=== PATIENT | female | born 1935 | race Caucasian/White ===

== ENCOUNTER 2020-08-04 11:20 | Inpatient (IN) ==
[2020-08-04] MEDS ORDERED: IOPAMIDOL 100 ML BOTTLE IV ONE (11:21)
[2020-08-04] MEDS ORDERED: cefTRIAXone 1 GM VIAL IV ONE (11:32)
[2020-08-04] MEDS ORDERED: methylPREDNISolone SOD SUCC 125 MG/2 ML VIAL IV ONE (11:32)
--- NOTE | 2020-08-04 11:39 | Emergency Department Note ---
Altered Mental Status HPI General Chief Complaint: Altered Mental Status Stated Complaint: shortness of breath, altered LOC Time Seen by Provider: 08/04/20 11:29 Mode of arrival: EMS Limitations: altered mental status History of Present Illness HPI Narrative: Narrative: Presents to room T1 via EMS for evaluation of altered levels of consciousness and respiratory distress. The patient has a history of COPD and CHF. She has had rapidly declining respiratory status per EMS since yesterday. Treatment prior to arrival included CPAP. On initial presentation the patient does not answer my questions and cannot provide additional history. I did obtain further history from the daughter who is arrived at the bedside. She states that the patient normally takes Lasix but has been noncompliant over the last month due to pain. She states that she did have recent surgery which has decreased her mobility. The daughter states 2 days ago the patient actually did have an [facility] and her mental s tatus was at baseline. She states over the last 2 days she has had rapid decline in her cognition and starting last night and into the morning her respiratory status is declined as well. There is no known Covid exposure. The patient has refused prior appointments for immunization at this time. Related Data Home Medications Medication Instructions Recorded Confirmed aspirin [Adult Low Dose Aspirin] 81 mg PO DAILY 06/27/20 08/02/20 folic acid 1 mg PO DAILY 06/27/20 08/02/20 furosemide 40 mg PO BID 06/27/20 08/02/20 metoprolol tartrate 25 mg PO BID 06/27/20 08/02/20 potassium chloride 10 meq PO BID 06/27/20 08/02/20 magnesium 250 mg tablet 250 mg PO QDAY 07/13/20 08/02/20 cholecalciferol (vitamin D3) 50 50 mcg PO QDAY 07/14/20 08/02/20 mcg (2,000 unit) capsule Previous Rx's Medication Instructions Recorded methocarbamol [Robaxin-750] 750 mg PO Q8H PRN #20 tab 06/27/20 tramadol 50 mg PO Q4HP PRN #20 tab 06/27/20 lorazepam 1 mg tablet 1 mg PO ONCE #2 tab 07/21/20 hydrocodone 7.5 mg-acetaminophen 1 tab PO Q6H PRN #56 tab MDD 4 07/23/20 325 mg tablet Allergies Allergy/AdvReac Type Severity Reaction Status Date / Time codeine [CODEINE] Allergy Unknown SHAKEY Verified 08/02/20 15:11 levofloxacin AdvReac Vomiting Verified 08/02/20 15:11 Review of Systems ROS ROS Narrative: Narrative: Limitations: ROS unobtainable due to patients medical condition [facility] Narrative Patient History Narrative: Narrative: Medical/Surgical/Family History All Active Problems (Updated 08/04/20 @ 15:46 by Yonas Funk MD) Acute delirium (Acute) Respiratory failure (Acute) Acute exacerbation of CHF (congestive heart failure) (Acute) Chronic obstructive pulmonary disease with (acute) exacerbation (Acute) Pneumonia (Acute) Idiopathic osteoporosis with pathological fracture (Acute) Age-related osteoporosis with current pathol fracture of vertebra (Acute) History of shoulder surgery (Chronic) History of appendectomy (Chronic) History of carpal tunnel surgery (Chronic) History of D&C (Chronic) History of tonsillectomy and adenoidectomy (Chronic) Vitamin B12 deficiency anemia (Chronic) Vitamin D deficiency (Chronic) Urinary frequency (Chronic) Pain in joint (Chronic) Knee pain, right (Chronic) Bile salt-induced diarrhea (Chronic) Lichen sclerosus (Chronic) SVT (supraventricular tachycardia) (Chronic) COPD (chronic obstructive pulmonary disease) (Chronic) Hyperlipidemia (Chronic) Edema (Chronic) CKD (chronic kidney disease), stage III (Chronic) Hypertension (Chronic) Peripheral neuropathy (Chronic) Diabetes mellitus (Chronic) Low back pain (Chronic) Medical History Bile salt-induced diarrhea CKD (chronic kidney disease), stage III COPD (chronic obstructive pulmonary disease) Diabetes mellitus Edema Hyperlipidemia Hypertension Knee pain, right Lichen sclerosus Low back pain Pain in joint Peripheral neuropathy SVT (supraventricular tachycardia) Urinary frequency Vitamin B12 deficiency anemia Vitamin D deficiency Surgical History History of appendectomy History of carpal tunnel surgery History of D&C History of shoulder surgery History of tonsillectomy and adenoidectomy Family History Other No pertinent family history Social History Smoking Status: Former smoker Alcohol Intake Frequency: does not drink Substance Use: does not use Exam Narrative Narrative: Narrative: General Limitations: altered mental status General appearance: Present in distress Head Head: Present atraumatic, normocephalic and normal inspection Eye Eye: Present normal appearance; Absent conjunctival injection ENT ENT: Present mucous membranes moist Neck Neck: Present normal inspection, trachea midline and other (No JVD) Chest Chest: Present normal inspection and symmetric chest wall rise Respiratory Respiratory: Present normal lung sounds bilaterally, respiratory distress, prolonged expiratory phase and decreased breath sounds Cardiovascular Cardiovascular: Present regular rate, normal rhythm and normal heart sounds Adbominal Abdominal: Present soft; Absent distention Extremities Extremities: Present pedal edema Neurological Neurological: Present motor sensory deficit and other (Limited neurologic exam secondary to the patient's altered level of consciousness. There is no obvious focal neurologic deficits identified) Skin Skin: Present warm (WNL) and dry; Absent rash Course Vital Signs Vital signs: Vital Signs Pulse Rate 70 08/04/20 11:31 Respiratory Rate 20 08/04/20 11:31 Blood Pressure 184/61 08/04/20 11:31 Pulse Oximetry (%) 96 08/04/20 11:31 Pulse Rate 60 08/04/20 13:46 Respiratory Rate 18 08/04/20 14:04 Blood Pressure 155/62 08/04/20 13:46 Pulse Oximetry (%) 100 08/04/20 14:04 Procedures Intubation Time out performed: Yes sedative: Etomidate Mg Given: 40 paralytic: Rocuronium Mg Given: 70 Laryngoscope: Fabiola ET Tube Size: 7.5 ET Tube Uncuffed: Yes Tube Secured Depth (cm): 23 Tube Secured Location: lips Tube Placement Confirmation: visualized tube passing through cords, equal breath sounds bilaterally, no breath sounds over epigastrium and confirmation by c apnometry Patient Tolerated Procedure: well and no complications Intubation Complications: none Other Procedure: The patient required improved vascular access to any a CVP line was placed by myself. The supraclavicular approach to subclavian vein was used. 1 attempt with Seldinger technique. 7.5 Georgian 4 port tube placed without difficulty. Secured in place. Postprocedural chest x-ray confirms placement. MDM MDM Narrative Medical decision making narrative: Narrative: Medical Records Medical records reviewed: Yes I reviewed the patient's medical records. Lab Data Lab results reviewed: Yes I reviewed the patient's lab results. Result diagrams: 08/04/20 11:58 08/04/20 11:58 Labs: Lab Results 0308/04/20 08/04/20 Range/Units 11:58 11:58 11:58 WBC 14.6 H (4.5-11.0) K/mcL RBC 4.38 (4.00-5.20) M/mcL Hgb 11.7 L (12.0-15.0) g/dL Hct 42.5 (36.0-48.0) % MCV 97.0 (80.0-100.0) fL MCH 26.7 (26.0-34.0) pg MCHC 27.5 L (31.0-36.0) g/dL RDW 13.5 (11.5-14.5) % Plt Count 256 (140-440) K/mcL MPV 9.3 (7.4-10.4) fL Neut % (Auto) 82.0 H (38.0-78.0) % Lymph % (Auto) 7.1 L (15.0-49.0) % Bay % (Auto) 10.0 (1.0-12.0) % Eos % (Auto) 0.1 (0.0-7.0) % Baso % (Auto) 0.8 (0.0-2.0) % Lymph # (Auto) 1.03 L (1.50-4.80) K/mcL [place] # (Auto) 1.46 H (0.10-0.90) K/mcL Eos # (Auto) 0.02 (0.00-0.70) K/mcL Baso # (Auto) 0.11 (0.00-0.20) K/mcL Absolute Neutrophils 11.96 H (1.80-8.00) K/mcL POC PT 12.5 (11.9-14.5) sec POC INR 1.0 (0.8-1.2) VBG Lactic Acid (0.5-2.0) mmol/L Sodium 137 (133-145) mmol/L Potassium 5.2 H (3.3-5.1) mmol/L Chloride 92 L (96-108) mmol/L Carbon Dioxide 37 H (22-30) mmol/L Anion Gap 8.0 (8.0-16.0) BUN 18 (8-23) mg/dL Creatinine 0.8 (0.6-1.1) mg/dL GFR Calculation 66 Glucose 182 H (70-105) mg/dL Calcium 9.1 (8.6-10.4) mg/dL Total Bilirubin 0.2 (0.1-1.0) mg/dL AST 21 (<32) U/L ALT 13 (<40) U/L Alkaline Phosphatase 117 (39-117) U/L Troponin T (<0.03) ng/mL NT-Pro-B Natriuret Pep 3131.0 H (<450.0) pg/mL Total Protein 7.3 (5.9-8.4) gm/dL Albumin 3.6 (3.2-5.2) gm/dL Globulin 3.7 (2.2-3.7) gm/dL Albumin/Globulin Ratio 1.0 (1.0-2.3) Urine Color Urine Appearance (Clear) Urine pH (5.0-9.0) Ur Specific Omega (1.000-1.035) Urine Protein (Negative) mg/dL Urine Glucose (UA) (Negative) mg/dL Urine Ketones (Negative) mg/dL Urine Occult Blood (Negative) mg/dL Urine Nitrate (Negative) Urine Bilirubin (Negative) mg/dL Urine Urobilinogen mg/dL Ur Leukocyte Esterase (Negative) /ug Urine RBC (0-3) /hpf Urine WBC (0-4) /hpf Ur Squamous Epith Cells (0-4) /hpf Urine Bacteria (0) /hpf Hyaline Casts (0-2) /lph Urine Mucus (None) /hpf Ur Culture Indicated? 08/04/20 08/04/20 08/04/20 Range/Units 11:58 11:58 14:10 WBC (4.5-11.0) K/mcL RBC (4.00-5.20) M/mcL Hgb (12.0-15.0) g/dL Hct (36.0-48.0) % MCV (80.0-100.0) fL MCH (26.0-34.0) pg MCHC (31.0-36.0) g/dL RDW (11.5-14.5) % Plt Count (140-440) K/mcL MPV (7.4-10.4) fL Neut % (Auto) (38.0-78.0) % Lymph % (Auto) (15.0-49.0) % Bay % (Auto) (1.0-12.0) % Eos % (Auto) (0.0-7.0) % Baso % (Auto) (0.0-2.0) % Lymph # (Auto) (1.50-4.80) K/mcL Bay # (Auto) (0.10-0.90) K/mcL Eos # (Auto) (0.00-0.70) K/mcL Baso # (Auto) (0.00-0.20) K/mcL Absolute Neutrophils (1.80-8.00) K/mcL POC PT (11.9-14.5) sec POC INR (0.8-1.2) VBG Lactic Acid 0.6 (0.5-2.0) mmol/L Sodium (133-145) mmol/L Potassium (3.3-5.1) mmol/L Chloride (96-108) mmol/L Carbon Dioxide (22-30) mmol/L Anion Gap (8.0-16.0) BUN (8-23) mg/dL Creatinine (0.6-1.1) mg/dL GFR Calculation Glucose (70-105) mg/dL Calcium (8.6-10.4) mg/dL Total Bilirubin (0.1-1.0) mg/dL AST (<32) U/L ALT (<40) U/L Alkaline Phosphatase (39-117) U/L Troponin T 0.05 H* (<0.03) ng/mL NT-Pro-B Natriuret Pep (<450.0) pg/mL Total Protein (5.9-8.4) gm/dL Albumin (3.2-5.2) gm/dL Globulin (2.2-3.7) gm/dL Albumin/Globulin Ratio (1.0-2.3) Urine Color Donna Urine Appearance Cloudy A (Clear) Urine pH 5.0 (5.0-9.0) Ur Specific Omega 1.021 (1.000-1.035) Urine Protein 100 A (Negative) mg/dL Urine Glucose (UA) Negative (Negative) mg/dL Urine Ketones Negative (Negative) mg/dL Urine Occult Blood Negative (Negative) mg/dL Urine Nitrate Negative (Negative) Urine Bilirubin Negative (Negative) mg/dL Urine Urobilinogen Negative mg/dL Ur Leukocyte Esterase Negative (Negative) /ug Urine RBC 6 H (0-3) /hpf Urine WBC 12 H (0-4) /hpf Ur Squamous Epith Cells 4 (0-4) /hpf Urine Bacteria Few A (0) /hpf Hyaline Casts 60 H (0-2) /lph Urine Mucus Few A (None) /hpf Ur Culture Indicated? yes ED POC Tests ED POC Tests: DENICE - Influenza A Negative DENICE - Influenza B Negative DENICE - SARS Antigen Negative Radiology Data Radiology results reviewed: Yes I reviewed the patient's radiology results. EKG Data EKG #1: EKG attestation: Yes I reviewed and interpreted this EKG. and Yes There are no EKG findings of acute coronary syndrome EKG results narrative: Normal sinus rhythm, rate 67, normal ST segments, normal QRS, no ectopy Rhythm Strip Data Rhythm Strip Rate: 70 Interpretation: Normal sinus rhythm Pulse Oximetry Data Pulse Ox %: 96 Interpretation: On CPAP, oxygenation well compensated CC TIME Critical Care Time Critical Care Time: Yes Total Critical Care Time: 30 Attestation: Approximately [#] minutes of critical care time was used in order to assess and manage the high probability of imminent or life threatening deterioration to cardiovascular status which required my highest level of preparedness and interventions with frequent patient assessments. This time is excluding time spent on separately billable procedures. On arrival the patient was in severe respiratory distress with altered mental status and poor respiratory effort. The patient was on CPAP. Initially blood gas was obtained in the past she was transitioned to BiPAP. Upon review of the blood gas which showed a pH of 7.0 and a PCO2 of greater than 50 I felt the patient was in severe respiratory failure and was not going to benefit from continued BiPAP administration. I did confirm with the patient's daughter who has power of mica miner that she was okay with intubation in the short-term. Please see the intubation note for full details. Central line was also placed as the patient had poor vascular access. Please see the CVP procedure note for full details. The patient's chest x-ray confirms placement of both lines. There is also noted to be consolidation and probable pulmonary edema. The patient's EKG shows no evidence of acute injury or ischemia. There is no peaked T waves. The patient's white blood cell count is elevated however the lactic acid is normal. The patient was treated with IV antibiotics after blood cultures. The patient also received IV Solu-Medrol. The patient's labs otherwise unremarkable except for the potassium which is 5.2. The patient's pulmonary edema was treated with Lasix and I do not believe the patient requires additional intervention for the potassium at this time. The patient did have a head CT which showed no evidence of intracranial hemorrhage. The patient's CTA of the chest shows no evidence of pulmonary embolus and confirms findings noted on chest x-ray. I have discussed the case with the hospitalist Dr. Mead who has been to the bedside and is accepted patient for admission to the ICU. Discharge Plan Patient/Caregiver Discharge Instructions Pt seen by GOVERNMENT RELATIONS ANALYST/PA only: No Clinical Impression: Acute delirium, Respiratory failure, Acute exacerbation of CHF (congestive heart failure), Chronic obstructive pulmonary disease with (acute) exacerbation, Pneumonia Patient Disposition: Xfer As Inpt ([facility]) Condition: Fair Follow up with: Venice Limon MD [Primary Care Provider] - Prescriptions: No Action lorazepam [Ativan] 1 mg tablet 1 mg PO ONCE Qty: 2 RF: 0 magnesium 250 mg tablet 250 mg PO QDAY RF: 0 cholecalciferol (vitamin D3) 50 mcg (2,000 unit) capsule 50 mcg PO QDAY RF: 0 hydrocodone-acetaminophen 7.5-325 mg tablet 1 tab PO Q6H MDD 4 PRN (Reason: pain) Qty: 56 RF: 0 furosemide 40 mg tablet 40 mg PO BID RF: 0 potassium chloride 10 mEq Tablet Extended Release 10 meq PO BID RF: 0 aspirin [Adult Low Dose Aspirin] 81 mg Tablet,Delayed Release (Dr/Ec) 81 mg PO DAILY RF: 0 folic acid 1 mg tablet 1 mg PO DAILY RF: 0 metoprolol tartrate 25 mg tablet 25 mg PO BID RF: 0 tramadol 50 mg tablet 50 mg PO Q4HP PRN (Reason: pain) Qty: 20 RF: 0 methocarbamol [Robaxin-750] 750 mg tablet 750 mg PO Q8H PRN (Reason: muscle spasm) Qty: 20 RF: 0
--- NOTE | 2020-08-04 11:57 | XRay Report ---
HISTORY: Dyspnea with altered level of consciousness FINDINGS: There are moderate generalized alveolar opacities in both lungs with the greatest consolidation in the lower lobes. The heart is mildly enlarged. The pulmonary vessels, best seen in the upper lobes appear enlarged. There may be small bilateral subpulmonic pleural effusions. Comparison with the prior exam from 12/04/13 shows the infiltrates are new and the heart has increased in size. IMPRESSION: Diffuse bilateral alveolar opacities. This could be due to pulmonary edema or pneumonia. Cardiomegaly Interpreted and Authenticated by: Bart Greene 08/04/20
[2020-08-04] MEDS ORDERED: ETOMIDATE 20 MG/10 ML VIAL IV ONE ×2 (12:20→12:49)
[2020-08-04] MEDS ORDERED: PROPOFOL 1,000 MG in PREMIX 1 BAG IV SCH (12:30)
[2020-08-04 12:38] LABS: POC Pro Time 12.5 sec (11.9-14.5)
[2020-08-04] MEDS ORDERED: ROCURONIUM 10 MG/ML ML IV ONE (12:49)
[2020-08-04] MEDS ORDERED: FUROSEMIDE 40 MG/4 ML VIAL IV ONE (13:08)
--- NOTE | 2020-08-04 13:09 | XRay Report ---
HISTORY: Intubated and central venous line placement FINDINGS: Endotracheal tube is well-positioned in the midthoracic trachea. There is a right subclavian line placed in the superior vena cava. There is no widening of the mediastinum. No pneumothorax is present. There are moderate diffuse infiltrates in both lower lobes. Small right-sided pleural effusion is seen. Heart size is borderline enlarged. The consolidation lung parenchyma has not changed significantly from the prior study done one hour earlier. IMPRESSION: Well-positioned support tubes. Stable widespread pulmonary infiltrates ER was called with the report Interpreted and Authenticated by: Bart Greene 08/04/20
[2020-08-04 13:18] LABS: Basophils # (Auto) 0.11 K/mcL (0.00-0.20); Basophils % (Auto) 0.8 % (0.0-2.0); Eosinophils # (Auto) 0.02 K/mcL (0.00-0.70); Eosinophils % (Auto) 0.1 % (0.0-7.0); Hematocrit 42.5 % (36.0-48.0); Hemoglobin 11.7 g/dL (12.0-15.0); Lymphocytes # (Auto) 1.03 K/mcL (1.50-4.80); Lymphocytes % (Auto) 7.1 % (15.0-49.0); Mean Corpuscular HGB Conc 27.5 g/dL (31.0-36.0); Mean Platelet Volume 9.3 fL (7.4-10.4); Monocytes # (Auto) 1.46 K/mcL (0.10-0.90); Platelet Count 256 K/mcL (140-440); RBC 4.38 M/mcL (4.00-5.20); Red Cell Distribution Width 13.5 % (11.5-14.5); WBC 14.6 K/mcL (4.5-11.0)
[2020-08-04 13:32] LABS: ALT/SGPT 13 U/L (<40); AST/SGOT 21 U/L (<32); Albumin 3.6 gm/dL (3.2-5.2); Alkaline Phosphatase 117 U/L (39-117); Bilirubin,Total 0.2 mg/dL (0.1-1.0); Blood Urea Nitrogen 18 mg/dL (8-23); Calcium 9.1 mg/dL (8.6-10.4); Carbon Dioxide 37 mmol/L (22-30); Chloride 92 mmol/L (96-108); Globulin 3.7 gm/dL (2.2-3.7); Glomerular Filtration Rate 66; Glucose 182 mg/dL (70-105)
--- NOTE | 2020-08-04 13:50 | Internal Med History&Physical ---
HPI History of Present Illness Patient information: Note initiated : 08/04/20 at 1:40 pm Service Date, if different from initiated Date: [] Patient: Janki Pruett 85 y/o F admitted on for SOB, Altered LOC. Chief Complaint: Shortness of breath History of present illness: Ms. Pruett is a 85 year old F who lives with her son and carries a complex past medical history including COPD/CHF/CKD stage III/HLD Who presented to the ER with 5 days onset of worsening shortness of breath/weaknes, cough and progressive dyspnea limiting her functionality. Her son found her increasingly confused lethargic and unable to perform ADLs over the last 24 hours. With increasing concerns she was brought into the ER. Initial work-up was consistent with bilateral chest infiltrates suggestive of pneumonia. White count 14.6, potassium 5.2, BNP 3131. Patient was started on diuretics due to suspicion of superimposed CHF. Cultures were drawn and antibiotics initiated. Patient remained increasingly labored with impending respiratory compromise. Stat ABG revealed 7.03/PCO2 150/117 on 60% FiO2 BiPAP. Patient was emergently intubated due to life-threatening respiratory acidosis and hypoventilation. Initial [place] 2 score 21 Subsequently hospitalist service was consulted. At the time of my evaluation patient is accompanied with her daughter. She was able to answer most the question. Patient is currently on mechanical ventilation AC settings rate 16. [place] is draining clear urine Review of systems could not be performed. However daughter does endorse that she has been coughing and getting progressively short of breath. Also associated confusion consistent with history as above. Review of systems Could not perform as patient is on mechanical ventilation PFSH PFS All Active Problems (Updated 08/04/20 @ 15:46 by Yonas Funk MD) Acute delirium (Acute) Respiratory failure (Acute) Acute exacerbation of CHF (congestive heart failure) (Acute) Chronic obstructive pulmonary disease with (acute) exacerbation (Acute) Pneumonia (Acute) Idiopathic osteoporosis with pathological fracture (Acute) Age-related osteoporosis with current pathol fracture of vertebra (Acute) History of shoulder surgery (Chronic) History of appendectomy (Chronic) History of carpal tunnel surgery (Chronic) History of D&C (Chronic) History of tonsillectomy and adenoidectomy (Chronic) Vitamin B12 deficiency anemia (Chronic) Vitamin D deficiency (Chronic) Urinary frequency (Chronic) Pain in joint (Chronic) Knee pain, right (Chronic) Bile salt-induced diarrhea (Chronic) Lichen sclerosus (Chronic) SVT (supraventricular tachycardia) (Chronic) COPD (chronic obstructive pulmonary disease) (Chronic) Hyperlipidemia (Chronic) Edema (Chronic) CKD (chronic kidney disease), stage III (Chronic) Hypertension (Chronic) Peripheral neuropathy (Chronic) Diabetes mellitus (Chronic) Low back pain (Chronic) Medical History Bile salt-induced diarrhea CKD (chronic kidney disease), stage III COPD (chronic obstructive pulmonary disease) Diabetes mellitus Edema Hyperlipidemia Hypertension Knee pain, right Lichen sclerosus Low back pain Pain in joint Peripheral neuropathy SVT (supraventricular tachycardia) Urinary frequency Vitamin B12 deficiency anemia Vitamin D deficiency Surgical History History of appendectomy History of carpal tunnel surgery History of D&C History of shoulder surgery History of tonsillectomy and adenoidectomy Family History Other No pertinent family history Social History (Updated 07/13/20 @ 14:41 by Vicky Carroll) marital status: occupational status: retired smoking status: Former smoker smoking status start date: 05/21/1955 smoking status stop date: 05/21/91 alcohol intake frequency: does not drink substance use type: does not use MEDS/ALLERGIES Home Medications and Allergies Home Medications Medication Instructions Recorded Confirmed Type aspirin [Adult Low Dose Aspirin] 81 mg PO DAILY 06/27/20 08/02/20 History folic acid 1 mg PO DAILY 06/27/20 08/02/20 History furosemide 40 mg PO BID 06/27/20 08/02/20 History methocarbamol [Robaxin-750] 750 mg PO Q8H PRN #20 tab 06/27/20 08/02/20 Rx metoprolol tartrate 25 mg PO BID 06/27/20 08/02/20 History potassium chloride 10 meq PO BID 06/27/20 08/02/20 History tramadol 50 mg PO Q4HP PRN #20 tab 06/27/20 08/02/20 Rx magnesium 250 mg tablet 250 mg PO QDAY 07/13/20 08/02/20 History cholecalciferol (vitamin D3) 50 50 mcg PO QDAY 07/14/20 08/02/20 History mcg (2,000 unit) capsule lorazepam 1 mg tablet 1 mg PO ONCE #2 tab 07/21/20 08/02/20 Rx hydrocodone 7.5 mg-acetaminophen 1 tab PO Q6H PRN #56 tab MDD 4 07/23/20 08/02/20 Rx 325 mg tablet Allergies Allergy/AdvReac Type Severity Reaction Status Date / Time codeine [CODEINE] Allergy Unknown SHAKEY Verified 08/02/20 15:11 levofloxacin AdvReac Vomiting Verified 08/02/20 15:11 EXAM Constitutional Vitals: Pulse Resp BP Pulse Ox 62 26 H 163/60 100 08/04/20 13:38 08/04/20 13:38 08/04/20 13:32 08/04/20 13:38 DATA Data Completed and Pending Labs: Labs from last 24 hours 08/04/20 08/04/20 08/04/20 11:58 11:58 11:58 WBC RBC Hgb Hct MCV MCH MCHC RDW Plt Count MPV Neut % (Auto) Lymph % (Auto) [place] % (Auto) Eos % (Auto) Baso % (Auto) Lymph # (Auto) [place] # (Auto) Eos # (Auto) Baso # (Auto) Absolute Neutrophils POC PT POC INR VBG Lactic Acid 0.6 Sodium 137 Potassium 5.2 H Chloride 92 L Carbon Dioxide 37 H Anion Gap 8.0 BUN 18 Creatinine 0.8 GFR Calculation 66 Glucose 182 H Calcium 9.1 Total Bilirubin 0.2 AST 21 ALT 13 Alkaline Phosphatase 117 Troponin T Pending NT-Pro-B Natriuret Pep 3131.0 H Total Protein 7.3 Albumin 3.6 Globulin 3.7 Albumin/Globulin Ratio 1.0 08/04/20 08/04/20 11:58 11:58 WBC 14.6 H RBC 4.38 Hgb 11.7 L Hct 42.5 MCV 97.0 MCH 26.7 MCHC 27.5 L RDW 13.5 Plt Count 256 MPV 9.3 Neut % (Auto) 82.0 H Lymph % (Auto) 7.1 L [place] % (Auto) 10.0 Eos % (Auto) 0.1 Baso % (Auto) 0.8 Lymph # (Auto) 1.03 L [place] # (Auto) 1.46 H Eos # (Auto) 0.02 Baso # (Auto) 0.11 Absolute Neutrophils 11.96 H POC PT 12.5 POC INR 1.0 VBG Lactic Acid Sodium Potassium Chloride Carbon Dioxide Anion Gap BUN Creatinine GFR Calculation Glucose Calcium Total Bilirubin AST ALT Alkaline Phosphatase Troponin T NT-Pro-B Natriuret Pep Total Protein Albumin Globulin Albumin/Globulin Ratio A/P Narrative A/P Narrative: * Acute respiratory failure with hypoxia and hypercapnia-PCO2 150/pH 7.03. Started on assist control mechanical ventilation. Continue propofol/fentanyl sedation, serial interval imaging/blood gases * Multifocal chest infiltrates likely pneumonia with superimposed CHF. Pancultures/antibiotic coverage for community-acquired pathogen. COVID-19 negative. * Mechanical ventilation management per protocol * Severe sepsis with endorgan dysfunction secondary to multifocal pneumonia. Management per guidelines, broad antibiotic/cultures, pressors if indicated. Secure central line * Hyperkalemia 5.2. On diuretics. Repeat BMP * COPD exacerbation continue bronchodilators/steroids * History of CHF with acute decompensation-obtain echocardiogram from [facility]. * Degenerative joint disease. * Prophylaxis Heparin/H2 antagonist Plan * ICU admission * Mechanical ventilation per protocol * Sepsis management guidelines * Monitor for endorgan dysfunction * Repeat BMP * Serial lactate/blood gas/chest imaging/sedation holiday * Propofol/fentanyl * Nutrition support Critical time spent in excess of 35 minutes on management of mechanical ventilation/shock and care coordination throughout the day in addition to time spent on patient physical. Time Spent With Patient Time: Total time spent is greater than 50% in coordination of care (as documented) at patient's floor/unit and/or counseling patient: Total time spent with greater than 50% in coordination of care (as documented) at patient's floor/unit and/or counseling patient:: Greater than 35 minutes
[2020-08-04] MEDS ORDERED: fentaNYL 100 MCG/2 ML VIAL IV ONE (14:20)
[2020-08-04 15:04] LABS: Appearance,Urine CLOUDY (Clear); Bacteria,Urine FEW /hpf (0); Bilirubin,Urine Negative (Negative); Color,Urine AMBER; Culture Indicated,Urine yes; Glucose,Urine (UA) Negative (Negative); Ketones,Urine Negative (Negative); Leukocyte Esterase,Urine Negative /ug (Negative); Mucus,Urine FEW /hpf; Nitrate,Urine Negative (Negative); Protein,Urine 100 mg/dL (Negative); Specific Gravity,Urine 1.021 (1.000-1.035); Urine Blood Negative (Negative); Urine Hyaline Cast 60 /lph (0-2); Urine RBC 6 /hpf (0-3); Urine Squamous Epithelial Cell 4 /hpf (0-4); Urine WBC 12 /hpf (0-4); Urobilinogen,Urine Negative
--- NOTE | 2020-08-04 15:17 | Cat Scan Report ---
History: Dyspnea, intubated COPD and congestive heart failure TECHNIQUE: Following injection of intravenous nonionic contrast the patient was scanned during the pulmonary arterial phase from the thoracic inlet to the diaphragms. Sagittal, coronal and axial MIPS images were created. Radiation exposure was limited using dose reduction technology. FINDINGS: The pulmonary arteries are normal with no intraluminal filling defects. The heart is normal in size and contour. There are scattered plaques in the coronary arteries. The aorta is normal in caliber and contains a moderate amount of plaque in the arch. More severe atherosclerosis is seen in the upper abdominal aorta. There are moderate-sized bilateral layering pleural effusions. This is causing compressive atelectasis of the basilar segments of both lower lobes. Endotracheal tube and right subclavian catheters remain well-positioned. No pneumothorax is present. Severe emphysema is present in both lungs. Superimposed upon the emphysema there is a random distribution of mild groundglass alveolar opacities which may be due to edema or pneumonia. Patient has partial airway collapse of the bronchus intermedius. No endoluminal mass is seen. There is also moderate narrowing of the left and right main stem bronchi. A severe kyphosis is present. There is an old compression fracture at L1 with cement within the vertebral. IMPRESSION: Severe emphysema with superimposed pneumonia or pulmonary edema. Moderate bilateral pleural effusions with bibasilar atelectasis Abnormal narrowed airways, involving the main bronchi bilaterally and especially the bronchus intermedius Dr. Funk was called with report Interpreted and Authenticated by: Bart Greene 08/04/20
--- NOTE | 2020-08-04 15:17 | Cat Scan Report ---
History: Altered mental status, intubated TECHNIQUE: The brain was imaged without contrast at 2.5 mm intervals. Sagittal and coronal reformats were created. Radiation exposure was limited using dose reduction technology. FINDINGS: There is mild atrophy involving the frontal parietal and temporal lobes. There is no evidence of hemorrhage, infarct or mass effect. The ventricles are normal in size. There is no abnormal extra-axial fluid collection. Moderate amount calcified plaque is seen in the cavernous portions of both internal carotids and there is a small amount of plaque in the left vertebral at the foramen magnum. The visualized sinuses are clear. IMPRESSION: Normal age-related degenerative changes Dr. Funk was called with the report Interpreted and Authenticated by: Bart Greene 08/04/20
[2020-08-04] MEDS ORDERED: ONDANSETRON 4 MG/2 ML VIAL IV PRN (15:59)
[2020-08-04] MEDS ORDERED: POTASSIUM CHLORIDE 20 MEQ PACKET PO PRN (15:59)
[2020-08-04] MEDS ORDERED: fentaNYL 2,500 MCG in 0.9 % SODIUM CHLORIDE 200 ML IV SCH (15:59)
[2020-08-04] MEDS ORDERED: NOREPINEPHRINE BITARTRATE 8 MG in 0.9 % SODIUM CHLORIDE 242 ML IV PRN (15:59)
[2020-08-04] MEDS ORDERED: VANCOMYCIN PER PHARMACY IV SCH (15:59)
[2020-08-04] MEDS ORDERED: METOPROLOL TARTRATE 5 MG/5 ML VIAL IV PRN (15:59)
[2020-08-04] MEDS ORDERED: ACETAMINOPHEN 325 MG TABLET PO PRN (15:59)
[2020-08-04] MEDS ORDERED: CEFEPIME 2 GM in DEXTROSE 5% IN WATER 50 ML IV SCH (15:59)
[2020-08-04] MEDS ORDERED: ONDANSETRON 4 MG ODT TABLET SL PRN (15:59)
[2020-08-04] MEDS ORDERED: POTASSIUM CHLORIDE 40 MEQ in DEXTROSE 5% IN WATER 500 ML IV PRN (15:59)
[2020-08-04] MEDS ORDERED: POLYETHYLENE GLYCOL 3350 17 GM PACKET PO PRN (15:59)
[2020-08-04] MEDS ORDERED: MAGNESIUM SULFATE 2 GM/50 ML BAG IV PRN (15:59)
[2020-08-04] MEDS ORDERED: MELATONIN 3 MG TABLET PO PRN (15:59)
[2020-08-04] MEDS ORDERED: BISACODYL 10 MG SUPP.RECT PR PRN (15:59)
[2020-08-04] MEDS ORDERED: methylPREDNISolone SOD SUCC 40 MG/ML VIAL IV SCH (15:59)
--- NOTE | 2020-08-04 17:05 | XRay Report ---
HISTORY: Nasogastric tube insertion FINDINGS: Nasogastric tube has been inserted. The tip is pointing inferiorly in the distal body of stomach. The bowel gas pattern is normal. There are clips in the gallbladder fossa. There is cement in the L2 vertebra following a prior kyphoplasty. Bilateral pleural effusions are present. IMPRESSION: Nasogastric tube in the distal body of the stomach Interpreted and Authenticated by: Bart Greene 08/04/20
[2020-08-04] MEDS: 0.9 % SODIUM CHLORIDE 1,000 ML IV SCH (17:17)
[2020-08-04] MEDS: 0.9 % SODIUM CHLORIDE 250 ML IV SCH (17:17)
[2020-08-04] MEDS: fentaNYL 2,500 MCG in 0.9 % SODIUM CHLORIDE 200 ML IV SCH (17:17)
[2020-08-04] MEDS: VANCOMYCIN 1,500 MG in 0.9 % SODIUM CHLORIDE 500 ML IV SCH (17:46)
[2020-08-04] MEDS: CEFEPIME 1 GM VIAL IV SCH (17:46)
[2020-08-04] MEDS: 0.9 % SODIUM CHLORIDE 10 ML SYRINGE IV SCH ×2 (17:47→21:54)
[2020-08-04] MEDS ORDERED: NOREPINEPHRINE BITARTRATE 4 MG/4 ML VIAL IV ONE (20:21)
[2020-08-04] MEDS: PROPOFOL 1,000 MG in PREMIX 1 BAG IV SCH (20:29)
[2020-08-04 20:48] LABS: Blood Urea Nitrogen 21 mg/dL (8-23); Calcium 8.7 mg/dL (8.6-10.4); Carbon Dioxide 37 mmol/L (22-30); Chloride 92 mmol/L (96-108); Glomerular Filtration Rate 66; Glucose 128 mg/dL (70-105)
[2020-08-04] MEDS: DOCUSATE SODIUM 100 MG CAPSULE PO SCH (20:54)
[2020-08-04] MEDS: SENNOSIDES/DOCUSATE SODIUM 1 TAB TABLET PO SCH (20:54)
[2020-08-04] MEDS: HEPARIN 5,000 UNIT/ML VIAL SQ SCH (21:52)
[2020-08-04] MEDS: methylPREDNISolone SOD SUCC 40 MG/ML VIAL IV SCH (21:52)
[2020-08-04] MEDS: CHLORHEXIDINE GLUCONATE 1 ML ORAL.SOL SWABMOUTH SCH (21:53)
[2020-08-04] MEDS: FAMOTIDINE/PF 20 MG/2 ML VIAL IV SCH (21:53)
[2020-08-05] MEDS: ACETAMINOPHEN 650 MG/65 ML BAG IV PRN ×2 (00:03→09:10)
[2020-08-05] MEDS: PROPOFOL 1,000 MG in PREMIX 1 BAG IV SCH ×3 (01:35→13:45)
[2020-08-05] MEDS: CEFEPIME 1 GM VIAL IV SCH ×2 (05:08→18:03)
[2020-08-05] MEDS: methylPREDNISolone SOD SUCC 40 MG/ML VIAL IV SCH ×3 (05:09→22:08)
[2020-08-05] MEDS: 0.9 % SODIUM CHLORIDE 10 ML SYRINGE IV SCH ×3 (05:09→21:12)
[2020-08-05] MEDS: 0.9 % SODIUM CHLORIDE 250 ML IV SCH ×3 (05:16→21:44)
[2020-08-05] MEDS: VANCOMYCIN 1,500 MG in 0.9 % SODIUM CHLORIDE 500 ML IV SCH ×2 (06:40→21:02)
[2020-08-05 07:07] LABS: Basophils # (Auto) 0.01 K/mcL (0.00-0.20); Basophils % (Auto) 0.1 % (0.0-2.0); Eosinophils # (Auto) 0 K/mcL (0.00-0.70); Eosinophils % (Auto) 0 % (0.0-7.0); Hematocrit 32.1 % (36.0-48.0); Hemoglobin 9.4 g/dL (12.0-15.0); Lymphocytes # (Auto) 0.98 K/mcL (1.50-4.80); Lymphocytes % (Auto) 7.8 % (15.0-49.0); Mean Cell Volume 90.7 fL (80.0-100.0); Mean Corpuscular HGB Conc 29.3 g/dL (31.0-36.0); Mean Platelet Volume 10.1 fL (7.4-10.4); Monocytes # (Auto) 0.73 K/mcL (0.10-0.90); Monocytes % (Auto) 5.8 % (1.0-12.0); Neutrophils % (Auto) 86.3 % (38.0-78.0); Platelet Count 194 K/mcL (140-440); RBC 3.54 M/mcL (4.00-5.20); Red Cell Distribution Width 13.5 % (11.5-14.5); WBC 12.6 K/mcL (4.5-11.0)
[2020-08-05 08:09] LABS: ALT/SGPT 10 U/L (<40); AST/SGOT 16 U/L (<32); Albumin 2.7 gm/dL (3.2-5.2); Alkaline Phosphatase 84 U/L (39-117); Bilirubin,Direct < 0.2 mg/dL (0-0.3); Bilirubin,Total 0.4 mg/dL (0.1-1.0); Blood Urea Nitrogen 24 mg/dL (8-23); Calcium 8.5 mg/dL (8.6-10.4); Carbon Dioxide 38 mmol/L (22-30); Chloride 95 mmol/L (96-108); Globulin 2.7 gm/dL (2.2-3.7); Glomerular Filtration Rate 57; Glucose 123 mg/dL (70-105); Lactate Dehydrogenase 194 U/L (135-225); Phosphorous 1.7 mg/dL (2.5-4.5); Triglycerides 130 mg/dL (<150); Uric Acid 4.7 mg/dL (2.5-8.0)
--- NOTE | 2020-08-05 08:49 | XRay Report ---
HISTORY: Intubated, short of breath, bilateral pleural effusions and atelectasis FINDINGS: There is moderate consolidation in both lung bases. This is a combination of pleural fluid and atelectasis. Post pneumonia may be present. Patient has underlying moderate emphysema, predominantly involving the upper lobes. There is thickening of the intralobular septa in the mid and upper lung davison. This could be due to inflammation or interstitial edema. The heart size is upper limits of normal but magnified by portable technique. The aeration in the left lower lobe has improved since the preintubation x-ray done on 08/04/20. There is no pneumothorax or widening in the mediastinum. Right internal jugular catheter is well-positioned. There is an NG tube passes through the esophagus into the stomach. IMPRESSION: Improvement of the left lower lobe aeration. The left-sided pleural effusion may have diminished a small amount. There has been no other change. Interpreted and Authenticated by: Bart Greene 08/05/20
[2020-08-05] MEDS: DOCUSATE SODIUM 100 MG CAPSULE PO SCH ×2 (10:14→20:41)
[2020-08-05] MEDS: MULTIVIT,THER IRON,CA,FA & MIN 1 TABLET PO SCH (10:14)
[2020-08-05] MEDS: FAMOTIDINE/PF 20 MG/2 ML VIAL IV SCH ×2 (10:27→20:45)
[2020-08-05] MEDS: HEPARIN 5,000 UNIT/ML VIAL SQ SCH ×2 (10:27→20:45)
[2020-08-05] MEDS: CHLORHEXIDINE GLUCONATE 1 ML ORAL.SOL SWABMOUTH SCH ×2 (10:27→20:55)
--- NOTE | 2020-08-05 11:08 | Internal Med Progress Note ---
SUBJECTIVE Subjective Patient information: Note initiated : 08/05/20 at 10:57 am Service Date, if different from initiated Date: [] Patient: Janki Pruett 85 y/o F admitted on 08/04/20 for SOB, Altered LOC. Chief Complaint: [] Interval history: Ms. Pruett is a 85 year old F who lives with her son and carries a complex past medical history including COPD/CHF/CKD stage III/HLD Who presented to the ER with 5 days onset of worsening shortness of breath/weaknes, cough and progressive dyspnea limiting her functionality. Her son found her increasingly confused lethargic and unable to perform ADLs over the last 24 hours. With increasing concerns she was brought into the ER. Initial work-up was consistent with bilateral chest infiltrates suggestive of pneumonia. White count 14.6, potassium 5.2, BNP 3131. Patient was started on diuretics due to suspicion of superimposed CHF. Cultures were drawn and antibiotics initiated. Patient remained increasingly labored with impending respiratory compromise. Stat ABG revealed 7.03/PCO2 150/117 on 60% FiO2 BiPAP. Patient was emergently intubated due to life-threatening respiratory acidosis and hypoventilation. Initial [place] 2 score 21 Subsequently hospitalist service was consulted. At the time of my evaluation patient is accompanied with her daughter. She was able to answer most the question. Patient is currently on mechanical ventilation AC settings rate 16. Drummond is draining clear urine Review of systems could not be performed. However daughter does endorse that she has been coughing and getting progressively short of breath. Also associated confusion consistent with history as above. 08/05-patient currently mechanical ventilation on propofol/fentanyl sedation. Currently on Levophed to maintain MAP at goal. ABG this morning 7.5 8/44/54. Vent settings changed to 6 to 8 cc IBW /RR down to 12-14 target minute ventilation 6 L. White count 12.6, creatinine 0.9, phosphorus 1.7 on replacement, initiate tube feeds, pro-Noel 0.3, urine WBCs 12. Continuing broad-spectrum antibiotics including cefepime/vancomycin along with Solu-Medrol. Sedation holiday in a.m. and assessment of RSBI. Anticipate vent weaning in 48 hours Constitutional Vitals: Vital Signs Temp Pulse Resp BP Pulse Ox 100.0 F H 55 L 12 117/48 92 08/05/20 10:12 08/05/20 10:12 08/05/20 10:52 08/05/20 10:11 08/05/20 10:52 Period Temp Pulse Resp BP Sys/Taveras Pulse Ox Last 24 Hr 97.3 F-100.2 F 36-78 10-46 92-184/36-129 88-100 Intake and Output 08/04/20 08/05/20 08/05/20 21:59 05:59 13:59 Intake Total 574 521 640 Output Total 1130 365 74 Balance -556 156 566 Weight 121.109 kg 108.091 kg Responds to commands, on light sedation On mech vent OG draining bile Foleys draining clear urine Intake & Output: Intake & Output 08/04/20 08/05/20 08/05/20 21:59 05:59 13:59 Intake Total 574 521 640 Output Total 1130 365 74 Balance -556 156 566 Weight 121.109 kg 108.091 kg Intake: IV 574 521 640 Sodium Chloride 0.9% 250 ml @ 240 20 mls/hr IV .[id number] [facility] Rx#: [id number] Levophed 8 mg In Sodium 4 24 Chloride 0.9% 242 ml @ 10 MCG/ MIN 18.75 mls/hr IV Q14H PRN Rx #:[id number] Diprivan 1,000 mg In Premix 1 63 176 51 Bag @ 5 MCG/KG/MIN 3.633 mls/hr IV .Q24H [facility] Rx#:[id number] Vancomycin 1,500 mg In Sodium 500 500 Chloride 0.9% 500 ml @ 333.3 mls/hr IV Q12H [facility] Rx#: [id number] fentaNYL 2,500 MCG In Sodium 7 40 Chloride 0.9% 200 ml @ 25 MCG/ HR 2.5 mls/hr IV Q24H [facility] Rx#: [id number] Tube Feeding 0 0 Output: Gastric Drainage 100 Oral 100 Urine Catheter Amount 1130 265 74 Other: Urine Appearance Clear Clear Cloudy Uretheral ([place]) Clear Clear Urine Color Light Donna Light Donna Dark Donna Uretheral ([place]) Light Donna Dark Donna Urine Odor Normal Stool Size Large Stool Color Brown Stool Consistency Soft OBJ DATA Labs CBC & Chem 7: 08/05/20 05:35 08/05/20 05:35 Labs: Abnormal Lab Results 08/05/20 08/05/20 08/05/20 05:36 05:35 05:35 WBC 12.6 H RBC 3.54 L Hgb 9.4 L Hct 32.1 L MCHC 29.3 L Neut % (Auto) 86.3 H Lymph % (Auto) 7.8 L Lymph # (Auto) 0.98 L [place] # (Auto) Absolute Neutrophils 10.88 H Potassium Chloride 95 L Carbon Dioxide 38 H Anion Gap 6.0 L BUN 24 H Glucose 123 H Calcium 8.5 L Phosphorus 1.7 L Troponin T NT-Pro-B Natriuret Pep Total Protein 5.4 L Albumin 2.7 L Procalcitonin 0.30 H Urine Appearance Urine Protein Urine RBC Urine WBC Urine Bacteria Hyaline Casts Urine Mucus 08/04/20 08/04/20 08/04/20 18:36 14:10 11:58 WBC RBC Hgb Hct MCHC Neut % (Auto) Lymph % (Auto) Lymph # (Auto) [place] # (Auto) Absolute Neutrophils Potassium Chloride 92 L Carbon Dioxide 37 H Anion Gap BUN Glucose 128 H Calcium Phosphorus Troponin T 0.05 H* NT-Pro-B Natriuret Pep Total Protein Albumin Procalcitonin Urine Appearance Cloudy A Urine Protein 100 A Urine RBC 6 H Urine WBC 12 H Urine Bacteria Few A Hyaline Casts 60 H Urine Mucus Few A 08/04/20 08/04/20 11:58 11:58 WBC 14.6 H RBC Hgb 11.7 L Hct MCHC 27.5 L Neut % (Auto) 82.0 H Lymph % (Auto) 7.1 L Lymph # (Auto) 1.03 L [place] # (Auto) 1.46 H Absolute Neutrophils 11.96 H Potassium 5.2 H Chloride 92 L Carbon Dioxide 37 H Anion Gap BUN Glucose 182 H Calcium Phosphorus Troponin T NT-Pro-B Natriuret Pep 3131.0 H Total Protein Albumin Procalcitonin Urine Appearance Urine Protein Urine RBC Urine WBC Urine Bacteria Hyaline Casts Urine Mucus Meds: Medications Acetaminophen (Acetaminophen 325 Mg Tablet) 650 mg PO Q4-6HP PRN; Protocol PRN Reason: Per Pain Protocol/Fever > 101 Bisacodyl (Bisacodyl 10 Mg Supp.Rect) 10 mg ME Q2-3DAYS PRN PRN Reason: Constipation Cefepime HCl (Cefepime 1 Gm Vial) 1 gm IV Q12H [facility] Last Admin: 08/05/20 05:08 Dose: 1 gm Documented by: Chlorhexidine Gluconate (Chlorhexidine Gluconate 1 Ml Oral.Lisbet) 15 ml SWABMOUTH BID [facility] Last Admin: 08/05/20 10:27 Dose: 15 ml Documented by: Docusate Sodium (Docusate Sodium 100 Mg Capsule) 100 mg PO BID [facility] Last Admin: 08/05/20 10:14 Dose: Not Given Documented by: Famotidine (Famotidine/Pf 20 Mg/2 Ml Vial) 20 mg IV Q12 [facility] Last Admin: 08/05/20 10:27 Dose: 20 mg Documented by: Heparin Sodium (Porcine) (Heparin 5,000 Unit/Ml Vial) 5,000 unit SQ Q12 [facility] Last Admin: 08/05/20 10:27 Dose: 5,000 unit Documented by: Potassium Chloride 40 meq/ (Dextrose) 520 mls @ 130 mls/hr IV UD PRN PRN Reason: K+ = or < 3.5 Acetaminophen (Ofirmev) 650 mg in 65 mls @ 130 mls/hr IV Q6HP PRN; Protocol PRN Reason: Per Pain Protocol/Fever > 101 Last Infusion: 08/05/20 09:40 Dose: Infused Documented by: Magnesium Sulfate (Magnesium Sulfate) 2 gm in 50 mls @ 50 mls/hr IV UD PRN PRN Reason: MG = or < 1.7 Sodium Chloride (Sodium Chloride 0.9%) 1,000 mls @ 50 mls/hr IV .Q20H [facility] Stop: 08/07/20 03:58 Last Admin: 08/04/20 17:17 Dose: 50 mls/hr Documented by: Norepinephrine Bitartrate 8 mg (/ Sodium Chloride) 250 mls @ 18.75 mls/hr IV Q14H PRN; Protocol PRN Reason: MAP >65 Last Titration: 08/05/20 10:05 Dose: 0 mcg/min, 0 mls/hr Documented by: Sodium Chloride (Sodium Chloride 0.9%) 250 mls @ 20 mls/hr IV .[id number] [facility] Last Admin: 08/05/20 05:16 Dose: 20 mls/hr Documented by: Propofol 1,000 mg/ Premix 100 mls @ 3.633 mls/hr IV .Q24H [facility]; Protocol Last Admin: 08/05/20 09:06 Dose: 20 mcg/kg/min, 14.533 mls/hr Documented by: Vancomycin HCl 1,500 mg/ (Sodium Chloride) 500 mls @ 333.3 mls/hr IV Q12H [facility] Last Infusion: 08/05/20 08:11 Dose: Infused Documented by: Fentanyl 2,500 mcg/ Sodium (Chloride) 250 mls @ 2.5 mls/hr IV Q24H [facility]; Protocol Last Titration: 08/05/20 00:41 Dose: 100 mcg/hr, 10 mls/hr Documented by: Iron Carb/Multivit/Carbide Die Maker/Folic Acid (Multivit,Ther Iron,Ca,Fa & Min 1 Tablet) 1 tab PO DAILY [facility] Last Admin: 08/05/20 10:14 Dose: Not Given Documented by: Melatonin (Melatonin 3 Mg Tablet) 3 mg PO HSP PRN PRN Reason: Insomnia Methylprednisolone Sodium Succinate (Methylprednisolone Sod Succ 40 Mg/Ml Vial) 40 mg IV Q8H [facility] Last Admin: 08/05/20 05:09 Dose: 40 mg Documented by: Metoprolol Tartrate (Metoprolol Tartrate 5 Mg/5 Ml Vial) 5 mg IV Q5M PRN PRN Reason: Heart Rate > 140 bpm Ondansetron HCl (Ondansetron 4 Mg Odt Tablet) 4 mg SL Q4-6HP PRN; Protocol PRN Reason: Nausea And Vomiting Ondansetron HCl (Ondansetron 4 Mg/2 Ml Vial) 4 mg IV Q4-6HP PRN; Protocol PRN Reason: Nausea And Vomiting Polyethylene Glycol (Polyethylene Glycol 3350 17 Gm Packet) 17 gm PO DAILYP PRN PRN Reason: Constipation Potassium Chloride (Potassium Chloride 20 Meq Packet) 40 meq PO DAILYP PRN PRN Reason: K+ < 3.5 Senna/Docusate Sodium (Sennosides/Docusate Sodium 1 Tab Tablet) 1 tab PO HS [facility] Last Admin: 08/04/20 20:54 Dose: Not Given Documented by: Sodium Chloride (0.9 % Sodium Chloride 10 Ml Syringe) 10 ml IV Q8 [facility] Last Admin: 08/05/20 05:09 Dose: Not Given Documented by: Vancomycin HCl (Vancomycin Per Pharmacy) 1 order IV UD [facility]; Protocol A/P Narrative A/P Narrative: * Acute respiratory failure with hypoxia and hypercapnia-rapid correction noted on mechanical ventilation on interval blood gas with normalization of pH and PCO2 close to baseline. * Multifocal chest infiltrates likely pneumonia with superimposed CHF. Clinically improving. Pancultures negative so far, continue antibiotic [place] for community-acquired pathogen. COVID-19 negative. * Mechanical ventilation management per protocol, continue ICU sedation on propofol/fentanyl, RSBI a.m./sedation holiday a.m. target IBW 6 to 8 cc/RR 12- 14, Target sats 90 * Severe sepsis with endorgan dysfunction secondary to multifocal pneumonia. Clinically improving * Hyperkalemia-resolved potassium 4.9 * Acute exacerbation of COPD- continue bronchodilators/steroids/mechanical ventilation * History of CHF with acute decompensation-obtain echocardiogram from [facility], [facility]. * Degenerative joint disease. * Prophylaxis Heparin/H2 antagonist Plan * Continue mechanical ventilation per protocol * Broad antibiotic * RSBI/sedation holiday a.m. * Enteral nutrition * Physical therapy * Family conference for goals of care. Patient remains critically ill high risk mortality, discussed clinical status with son who was present with patient during my visit this morning Critical time spent in excess of 35 minutes on management of mechanical ventilation/shock and care coordination throughout the day in addition to time spent on patient physical. Time Spent With Patient Time: Total time spent is greater than 50% in coordination of care (as documented) at patient's floor/unit and/or counseling patient: QUALITY VTE Deep Vein Thrombosis/Pulmonary Embolism Present on Admission: No
[2020-08-05] MEDS: NOREPINEPHRINE BITARTRATE 8 MG in 0.9 % SODIUM CHLORIDE 242 ML IV SCH (11:43)
[2020-08-05] MEDS ORDERED: NEUTRA PHOS 1 PACKET PO ONE (13:05)
[2020-08-05] MEDS ORDERED: MIDAZOLAM HCL 50 MG in 0.9 % SODIUM CHLORIDE 90 ML IV SCH (16:00)
[2020-08-05] MEDS: 0.9 % SODIUM CHLORIDE 1,000 ML IV SCH (16:58)
[2020-08-05] MEDS: MIDAZOLAM HCL 50 MG in 0.9 % SODIUM CHLORIDE 90 ML IV SCH ×2 (17:16→17:22)
[2020-08-05] MEDS: fentaNYL 2,500 MCG in 0.9 % SODIUM CHLORIDE 200 ML IV SCH (19:16)
[2020-08-05] MEDS: SENNOSIDES/DOCUSATE SODIUM 1 TAB TABLET PO SCH (20:41)
[2020-08-05 20:47] LABS: Blood Urea Nitrogen 30 mg/dL (8-23); Calcium 8.4 mg/dL (8.6-10.4); Carbon Dioxide 36 mmol/L (22-30); Chloride 93 mmol/L (96-108); Glomerular Filtration Rate 57; Glucose 126 mg/dL (70-105)
[2020-08-06] MEDS ORDERED: 0.9 % SODIUM CHLORIDE 10 ML SYRINGE IV PRN (01:14)
[2020-08-06] MEDS: 0.9 % SODIUM CHLORIDE 250 ML IV SCH ×5 (01:55→23:56)
[2020-08-06] MEDS: CEFEPIME 1 GM VIAL IV SCH ×2 (05:07→17:10)
[2020-08-06] MEDS: methylPREDNISolone SOD SUCC 40 MG/ML VIAL IV SCH ×3 (05:20→21:52)
[2020-08-06] MEDS: MIDAZOLAM HCL 50 MG in 0.9 % SODIUM CHLORIDE 90 ML IV SCH (07:20)
[2020-08-06] MEDS: NOREPINEPHRINE BITARTRATE 8 MG in 0.9 % SODIUM CHLORIDE 242 ML IV SCH ×3 (07:27→17:12)
[2020-08-06 07:29] LABS: Basophils # (Auto) 0.01 K/mcL (0.00-0.20); Basophils % (Auto) 0.1 % (0.0-2.0); Eosinophils # (Auto) 0 K/mcL (0.00-0.70); Eosinophils % (Auto) 0 % (0.0-7.0); Hematocrit 30.7 % (36.0-48.0); Hemoglobin 9.4 g/dL (12.0-15.0); Lymphocytes # (Auto) 0.79 K/mcL (1.50-4.80); Lymphocytes % (Auto) 5.4 % (15.0-49.0); Mean Cell Volume 85.8 fL (80.0-100.0); Mean Corpuscular HGB Conc 30.6 g/dL (31.0-36.0); Mean Platelet Volume 10.1 fL (7.4-10.4); Monocytes # (Auto) 0.89 K/mcL (0.10-0.90); Monocytes % (Auto) 6.1 % (1.0-12.0); Neutrophils % (Auto) 88.4 % (38.0-78.0); Platelet Count 210 K/mcL (140-440); RBC 3.58 M/mcL (4.00-5.20); Red Cell Distribution Width 14.7 % (11.5-14.5); WBC 14.6 K/mcL (4.5-11.0)
[2020-08-06] MEDS: ACETAMINOPHEN 650 MG/65 ML BAG IV PRN ×2 (07:36→17:51)
[2020-08-06] MEDS: MULTIVIT,THER IRON,CA,FA & MIN 1 TABLET PO SCH (07:37)
[2020-08-06] MEDS: CHLORHEXIDINE GLUCONATE 1 ML ORAL.SOL SWABMOUTH SCH ×2 (07:37→20:23)
[2020-08-06] MEDS: HEPARIN 5,000 UNIT/ML VIAL SQ SCH ×2 (07:37→20:24)
[2020-08-06] MEDS: 0.9 % SODIUM CHLORIDE 10 ML SYRINGE IV SCH ×2 (07:37→20:24)
[2020-08-06] MEDS: FAMOTIDINE/PF 20 MG/2 ML VIAL IV SCH ×2 (07:37→20:23)
[2020-08-06] MEDS: DOCUSATE SODIUM 100 MG CAPSULE PO SCH ×2 (07:37→20:20)
[2020-08-06 08:07] LABS: ALT/SGPT 9 U/L (<40); AST/SGOT 16 U/L (<32); Albumin/Globulin Ratio 1.2 (1.0-2.3); Alkaline Phosphatase 83 U/L (39-117); Bilirubin,Direct < 0.2 mg/dL (0-0.3); Bilirubin,Total 0.4 mg/dL (0.1-1.0); Blood Urea Nitrogen 30 mg/dL (8-23); Calcium 8.4 mg/dL (8.6-10.4); Carbon Dioxide 33 mmol/L (22-30); Chloride 96 mmol/L (96-108); Globulin 2.6 gm/dL (2.2-3.7); Glomerular Filtration Rate 57; Glucose 131 mg/dL (70-105); Lactate Dehydrogenase 196 U/L (135-225); Phosphorous 2.8 mg/dL (2.5-4.5); Triglycerides 118 mg/dL (<150); Uric Acid 3.4 mg/dL (2.5-8.0)
--- NOTE | 2020-08-06 09:04 | XRay Report ---
HISTORY: Intubated, follow-up pulmonary infiltrates FINDINGS: There is moderate consolidation left lower lobe with milder consolidation in the right lower lobe. Superimposed upon this are small bilateral pleural effusions. There is improving aeration in the right lower lobe since 08/05/20. There has been no change in the left side. The heart remains borderline enlarged. Prominent lung markings are seen in the mid and upper lung davison bilaterally which could be due to edema or diffuse inflammatory reaction. This is unchanged. The support tubes remain well-positioned. There is no pneumothorax. IMPRESSION: Improving infiltrate in the right lower lobe and no change in the left lung Interpreted and Authenticated by: Bart Greene 08/06/20
[2020-08-06] MEDS ORDERED: FUROSEMIDE 40 MG/4 ML VIAL IV ONE (09:47)
[2020-08-06] MEDS: VANCOMYCIN 1,500 MG in 0.9 % SODIUM CHLORIDE 500 ML IV SCH (13:01)
--- NOTE | 2020-08-06 13:27 | Internal Med Progress Note ---
SUBJECTIVE Subjective Patient information: Note initiated : 08/06/20 at 1:21 pm Service Date, if different from initiated Date: [] Patient: Janki Prutet 85 y/o F admitted on 08/04/20 for SOB, Altered LOC. Chief Complaint: [] Interval history: Ms. Pruett is a 85 year old F who lives with her son and carries a complex past medical history including COPD/CHF/CKD stage III/HLD Who presented to the ER with 5 days onset of worsening shortness of breath/weaknes, cough and progressive dyspnea limiting her functionality. Her son found her increasingly confused lethargic and unable to perform ADLs over the last 24 hours. With increasing concerns she was brought into the ER. Initial work-up was consistent with bilateral chest infiltrates suggestive of pneumonia. White count 14.6, potassium 5.2, BNP 3131. Patient was started on diuretics due to suspicion of superimposed CHF. Cultures were drawn and antibiotics initiated. Patient remained increasingly labored with impending respiratory compromise. Stat ABG revealed 7.03/PCO2 150/117 on 60% FiO2 BiPAP. Patient was emergently intubated due to life-threatening respiratory acidosis an d hypoventilation. Initial Vader 2 score 21 Subsequently hospitalist service was consulted. At the time of my evaluation patient is accompanied with her daughter. She was able to answer most the question. Patient is currently on mechanical ventilation AC settings rate 16. Drummond is draining clear urine Review of systems could not be performed. However daughter does endorse that she has been coughing and getting progressively short of breath. Also associated confusion consistent with history as above. 08/05-patient currently mechanical ventilation on propofol/fentanyl sedation. Currently on Levophed to maintain MAP at goal. ABG this morning 7.5 8/54. Vent settings changed to 6 to 8 cc IBW /RR down to 12-14 target minute ventilation 6 L. White count 12.6, creatinine 0.9, phosphorus 1.7 on replacement, initiate tube feeds, pro-Noel 0.3, urine WBCs 12. Continuing broad-spectrum antibiotics including cefepime/vancomycin along with Solu-Medrol. Sedation holiday in a.m. and assessment of RSBI. Anticipate vent weaning in 48 hours 08/06-patient started diuresing well. Sedation holiday this a.m. Alert and respond to commands. Daughter at bedside. Multiple concerns and questions addressed including antibiotics/imaging/blood work/echocardiogram and plan of care. White count 14.6.Interval improvement in chest imaging. Switch to midazolam/fentanyl due to bradycardia arrhythmia from propofol. Off Levophed. Hemodynamic stabilizing. Creatinine 1.9. Drummond is draining clear urine. Troponin 0.05 secondary sepsis endorgan dysfunction. ABG this morning 7.5 on 40% FiO2 AC 450 cc/12 Constitutional Vitals: Vital Signs Temp Pulse Resp BP Pulse Ox 98.7 F 79 21 130/49 95 08/06/20 12:01 08/06/20 12:01 08/06/20 12:01 08/06/20 12:01 08/06/20 12:01 Period Temp Pulse Resp BP Sys/Taveras Pulse Ox Last 24 Hr 98.4 F-99.7 F 40-117 5-34 113-197/41-144 93-97 Intake and Output 08/05/20 08/06/20 08/06/20 21:59 05:59 13:59 Intake Total 771 735 771 Output Total 201 793 3656 Balance 606 483 -771 Weight 111.312 kg On mechanical ventilation Ongoing tube feeds Off pressors Anxious Drummond draining clear urine Intake & Output: Intake & Output 08/05/20 08/06/20 08/06/20 21:59 05:59 13:59 Intake Total 771 735 771 Output Total 303 870 0231 Balance 606 483 -771 Weight 111.312 kg Intake: IV 638 507 583 Sodium Chloride 0.9% 250 ml @ 319 250 TKO IV .Q0M [facility] Rx#:[id number] Versed 50 mg In Sodium Chloride 28 3 88 0.9% 90 ml @ 3 MG/HR 6 mls/hr IV Q16H [facility] Rx#:[id number] Versed 50 mg In Sodium Chloride 4 0.9% 90 ml @ 0.02 MG/KG/HR 4. 324 mls/hr IV Q24H [facility] Rx#: [id number] Levophed 8 mg In Sodium 9 3 17 Chloride 0.9% 242 ml @ 10 MCG/ MIN 18.75 mls/hr IV Q14H [facility] Rx #:[id number] Diprivan 1,000 mg In Premix 1 44 Bag @ 5 MCG/KG/MIN 3.633 mls/hr IV .Q24H [facility] Rx#:[id number] Vancomycin 1,500 mg In Sodium 500 Chloride 0.9% 500 ml @ 333.3 mls/hr IV Q12H [facility] Rx#: [id number] fentaNYL 2,500 MCG In Sodium 234 1 163 Chloride 0.9% 200 ml @ 25 MCG/ HR 2.5 mls/hr IV Q24H [facility] Rx#: [id number] Tube Feeding 103 168 158 GI Tube Flush 30 60 30 Output: Urine Catheter Amount 002 618 5510 Void Amount 30 Other: Urine Appearance Clear Clear Clear Sediment Uretheral (Drummond) Clear Clear Cloudy Sediment Urine Color Dark Yellow Light Donna Pale Uretheral (Drummond) Dark Yellow Light Donna Light Donna Urine Odor Normal OBJ DATA Labs CBC & Chem 7: 08/06/20 04:55 08/06/20 04:55 Labs: Abnormal Lab Results 08/06/20 08/06/20 08/06/20 08:08 04:55 04:55 WBC 14.6 H RBC 3.58 L Hgb 9.4 L Hct 30.7 L MCHC 30.6 L RDW 14.7 H Neut % (Auto) 88.4 H Lymph % (Auto) 5.4 L Lymph # (Auto) 0.79 L Camp # (Auto) Absolute Neutrophils 12.91 H Potassium Chloride Carbon Dioxide 33 H Anion Gap BUN 30 H Glucose 131 H Calcium 8.4 L Phosphorus Troponin T NT-Pro-B Natriuret Pep Total Protein 5.6 L Albumin 3.0 L Procalcitonin Urine Appearance Urine Protein Urine RBC Urine WBC Urine Bacteria Hyaline Casts Urine Mucus Vancomycin Trough 22.3 H* 08/05/20 08/05/20 08/05/20 19:25 05:36 05:35 WBC RBC Hgb Hct MCHC RDW Neut % (Auto) Lymph % (Auto) Lymph # (Auto) Camp # (Auto) Absolute Neutrophils Potassium Chloride 93 L 95 L Carbon Dioxide 36 H 38 H Anion Gap 7.0 L 6.0 L BUN 30 H 24 H Glucose 126 H 123 H Calcium 8.4 L 8.5 L Phosphorus 1.7 L Troponin T NT-Pro-B Natriuret Pep Total Protein 5.4 L Albumin 2.7 L Procalcitonin 0.30 H Urine Appearance Urine Protein Urine RBC Urine WBC Urine Bacteria Hyaline Casts Urine Mucus Vancomycin Trough 08/05/20 08/04/20 08/04/20 05:35 18:36 14:10 WBC 12.6 H RBC 3.54 L Hgb 9.4 L Hct 32.1 L MCHC 29.3 L RDW Neut % (Auto) 86.3 H Lymph % (Auto) 7.8 L Lymph # (Auto) 0.98 L Camp # (Auto) Absolute Neutrophils 10.88 H Potassium Chloride 92 L Carbon Dioxide 37 H Anion Gap BUN Glucose 128 H Calcium Phosphorus Troponin T NT-Pro-B Natriuret Pep Total Protein Albumin Procalcitonin Urine Appearance Cloudy A Urine Protein 100 A Urine RBC 6 H Urine WBC 12 H Urine Bacteria Few A Hyaline Casts 60 H Urine Mucus Few A Vancomycin Trough 08/04/20 08/04/20 08/04/20 11:58 11:58 11:58 WBC 14.6 H RBC Hgb 11.7 L Hct MCHC 27.5 L RDW Neut % (Auto) 82.0 H Lymph % (Auto) 7.1 L Lymph # (Auto) 1.03 L Camp # (Auto) 1.46 H Absolute Neutrophils 11.96 H Potassium 5.2 H Chloride 92 L Carbon Dioxide 37 H Anion Gap BUN Glucose 182 H Calcium Phosphorus Troponin T 0.05 H* NT-Pro-B Natriuret Pep 3131.0 H Total Protein Albumin Procalcitonin Urine Appearance Urine Protein Urine RBC Urine WBC Urine Bacteria Hyaline Casts Urine Mucus Vancomycin Trough Meds: Medications Acetaminophen (Acetaminophen 325 Mg Tablet) 650 mg PO Q4-6HP PRN; Protocol PRN Reason: Per Pain Protocol/Fever > 101 Bisacodyl (Bisacodyl 10 Mg Supp.Rect) 10 mg MA Q2-3DAYS PRN PRN Reason: Constipation Cefepime HCl (Cefepime 1 Gm Vial) 1 gm IV Q12H [facility] Last Admin: 08/06/20 05:07 Dose: 1 gm Documented by: Chlorhexidine Gluconate (Chlorhexidine Gluconate 1 Ml Oral.Lisbet) 15 ml SWABMOUTH BID [facility] Last Admin: 08/06/20 07:37 Dose: 15 ml Documented by: Diagnostic Test (Pha) (Accu-Chek 1 Each Strip) 1 each FS Q6 [facility] Last Admin: 08/06/20 12:06 Dose: 1 each Documented by: Docusate Sodium (Docusate Sodium 100 Mg Capsule) 100 mg PO BID [facility] Last Admin: 08/06/20 07:37 Dose: Not Given Documented by: Famotidine (Famotidine/Pf 20 Mg/2 Ml Vial) 20 mg IV Q12 [facility] Last Admin: 08/06/20 07:37 Dose: 20 mg Documented by: Heparin Sodium (Porcine) (Heparin 5,000 Unit/Ml Vial) 5,000 unit SQ Q12 [facility] Last Admin: 08/06/20 07:37 Dose: 5,000 unit Documented by: Potassium Chloride 40 meq/ (Dextrose) 520 mls @ 130 mls/hr IV UD PRN PRN Reason: K+ = or < 3.5 Acetaminophen (Ofirmev) 650 mg in 65 mls @ 130 mls/hr IV Q6HP PRN; Protocol PRN Reason: Per Pain Protocol/Fever > 101 Last Infusion: 08/06/20 08:06 Dose: Infused Documented by: Magnesium Sulfate (Magnesium Sulfate) 2 gm in 50 mls @ 50 mls/hr IV UD PRN PRN Reason: MG = or < 1.7 Sodium Chloride (Sodium Chloride 0.9%) 1,000 mls @ 50 mls/hr IV .Q20H [facility] Stop: 08/07/20 03:58 Last Admin: 08/05/20 16:58 Dose: 50 mls/hr Documented by: Fentanyl 2,500 mcg/ Sodium (Chloride) 250 mls @ 2.5 mls/hr IV Q24H [facility]; Protocol Last Titration: 08/06/20 11:31 Dose: 75 mcg/hr, 7.5 mls/hr Documented by: Norepinephrine Bitartrate 8 mg (/ Sodium Chloride) 250 mls @ 18.75 mls/hr IV Q14H [facility]; Protocol Last Admin: 08/06/20 13:06 Dose: 1 mcg/min, 1.875 mls/hr Documented by: Sodium Chloride (Sodium Chloride 0.9%) 250 mls @ 0 mls/hr IV .Q0M [facility] Last Admin: 08/06/20 11:20 Dose: 20 mls/hr Documented by: Midazolam HCl 50 mg/ Sodium (Chloride) 100 mls @ 6 mls/hr IV Q16H [facility]; Protocol Last Titration: 08/06/20 12:45 Dose: 3 mg/hr, 6 mls/hr Documented by: Sodium Chloride (Sodium Chloride 0.9%) 250 mls @ 20 mls/hr IV .[id number] [facility] Last Admin: 08/06/20 07:23 Dose: 20 mls/hr Documented by: Iron Carb/Multivit/Dougherty/Folic Acid (Multivit,Ther Iron,Ca,Fa & Min 1 Tablet) 1 tab PO DAILY [facility] Last Admin: 08/06/20 07:37 Dose: Not Given Documented by: Melatonin (Melatonin 3 Mg Tablet) 3 mg PO HSP PRN PRN Reason: Insomnia Methylprednisolone Sodium Succinate (Methylprednisolone Sod Succ 40 Mg/Ml Vial) 40 mg IV Q8H [facility] Last Admin: 08/06/20 05:20 Dose: 40 mg Documented by: Metoprolol Tartrate (Metoprolol Tartrate 5 Mg/5 Ml Vial) 5 mg IV Q5M PRN PRN Reason: Heart Rate > 140 bpm Ondansetron HCl (Ondansetron 4 Mg Odt Tablet) 4 mg SL Q4-6HP PRN; Protocol PRN Reason: Nausea And Vomiting Ondansetron HCl (Ondansetron 4 Mg/2 Ml Vial) 4 mg IV Q4-6HP PRN; Protocol PRN Reason: Nausea And Vomiting Polyethylene Glycol (Polyethylene Glycol 3350 17 Gm Packet) 17 gm PO DAILYP PRN PRN Reason: Constipation Potassium Chloride (Potassium Chloride 20 Meq Packet) 40 meq PO DAILYP PRN PRN Reason: K+ < 3.5 Senna/Docusate Sodium (Sennosides/Docusate Sodium 1 Tab Tablet) 1 tab PO HS [facility] Last Admin: 08/05/20 20:41 Dose: Not Given Documented by: Sodium Chloride (0.9 % Sodium Chloride 10 Ml Syringe) 10 ml IV UD PRN PRN Reason: FLUSH Sodium Chloride (0.9 % Sodium Chloride 10 Ml Syringe) 10 ml IV Q12 [facility] Last Admin: 08/06/20 07:37 Dose: 10 ml Documented by: Vancomycin HCl (Vancomycin Per Pharmacy) 1 order IV UD [facility]; Protocol A/P Narrative A/P Narrative: * Acute respiratory failure with hypoxia and hypercapnia-clinically improving. Currently on mechanical ventilation. Anticipate extubation in 24 hours if clinically stable and parameters favorable. PaO2 FiO2 ratio less than 150. Initiate diuresis to improve lung compliance/oxygenation * Multifocal chest infiltrates likely pneumonia with superimposed CHF. Clinical and radiological improvement noted. Continue antibiotic coverage * Septic shock off pressors. White count 14.6. Clinically improving. Aggressively fluid resuscitated. Initiate diuresis to improve lung compliance * Mechanical ventilation management per protocol, continue ICU sedation on propofol/fentanyl, RSBI a.m./sedation holiday a.m. target IBW 6 to 8 cc/RR 12- 14, Target sats 90 * Hyperkalemia-resolved * Acute exacerbation of COPD- continue bronchodilators/steroids/mechanical ventilation * History of CHF with acute decompensation-repeat echocardiogram results pending * Degenerative joint disease. * Prophylaxis Heparin/H2 antagonist Plan * Sedation holiday/R SBI a.m. vent weaning protocol * Gentle diuresis * Antibiotic coverage * Continue enteral nutrition * Physical therapy for passive ROM * Critical time spent in excess of 35 minutes on management of mechanical ventilation Time Spent With Patient Time: Total time spent is greater than 50% in coordination of care (as documented) at patient's floor/unit and/or counseling patient: QUALITY VTE Deep Vein Thrombosis/Pulmonary Embolism Present on Admission: No
[2020-08-06 13:29] LABS: POC Blood Urea Nitrogen 29 mg/dL (6-20); POC CO2 34 mmol/L (22-30); POC Calcium, Ionized 1.08 mmEq/L (1.16-1.32); POC Chloride 94 mEq/L (96-108); POC Glucose, Random 129 mg/dL (70-105); POC Hematocrit 28 % (36-48); POC Sodium 137 mEq/L (133-145)
[2020-08-06] MEDS: 0.9 % SODIUM CHLORIDE 1,000 ML IV SCH (13:41)
[2020-08-06] MEDS: FUROSEMIDE 20 MG/2 ML VIAL IV SCH ×2 (13:59→21:51)
[2020-08-06] MEDS: fentaNYL 2,500 MCG in 0.9 % SODIUM CHLORIDE 200 ML IV SCH (18:28)
[2020-08-06] MEDS: SENNOSIDES/DOCUSATE SODIUM 1 TAB TABLET PO SCH (20:20)
[2020-08-06] MEDS ORDERED: MAGNESIUM SULFATE 2 GM/50 ML BAG IV ONE (21:17)
[2020-08-07] MEDS: CEFEPIME 1 GM VIAL IV SCH ×2 (05:44→17:03)
[2020-08-07] MEDS: methylPREDNISolone SOD SUCC 40 MG/ML VIAL IV SCH ×3 (05:46→21:26)
[2020-08-07] MEDS: FUROSEMIDE 20 MG/2 ML VIAL IV SCH ×3 (05:47→21:25)
[2020-08-07 06:35] LABS: Basophils # (Auto) 0.01 K/mcL (0.00-0.20); Basophils % (Auto) 0.1 % (0.0-2.0); Eosinophils # (Auto) 0 K/mcL (0.00-0.70); Eosinophils % (Auto) 0 % (0.0-7.0); Hematocrit 30.7 % (36.0-48.0); Hemoglobin 9.5 g/dL (12.0-15.0); Lymphocytes # (Auto) 0.65 K/mcL (1.50-4.80); Mean Cell Volume 85.3 fL (80.0-100.0); Mean Corpuscular HGB Conc 30.9 g/dL (31.0-36.0); Mean Platelet Volume 9.7 fL (7.4-10.4); Monocytes % (Auto) 8.5 % (1.0-12.0); Neutrophils % (Auto) 86.4 % (38.0-78.0); Platelet Count 207 K/mcL (140-440); Red Cell Distribution Width 14.7 % (11.5-14.5)
[2020-08-07 06:59] LABS: ALT/SGPT 78 U/L (<40); AST/SGOT 108 U/L (<32); Albumin 2.6 gm/dL (3.2-5.2); Alkaline Phosphatase 84 U/L (39-117); Bilirubin,Direct 0.2 mg/dL (<0.3); Bilirubin,Total 0.4 mg/dL (0.1-1.0); Blood Urea Nitrogen 31 mg/dL (8-23); Calcium 7.9 mg/dL (8.6-10.4); Carbon Dioxide 39 mmol/L (22-30); Chloride 96 mmol/L (96-108); Globulin 2.5 gm/dL (2.2-3.7); Glomerular Filtration Rate 66; Glucose 146 mg/dL (70-105); Lactate Dehydrogenase 248 U/L (135-225); Phosphorous 3.2 mg/dL (2.5-4.5); Triglycerides 120 mg/dL (<150)
[2020-08-07] MEDS: NOREPINEPHRINE BITARTRATE 8 MG in 0.9 % SODIUM CHLORIDE 242 ML IV SCH (07:30)
[2020-08-07] MEDS: MIDAZOLAM HCL 50 MG in 0.9 % SODIUM CHLORIDE 90 ML IV SCH (07:39)
[2020-08-07] MEDS: MULTIVIT,THER IRON,CA,FA & MIN 1 TABLET PO SCH (07:39)
[2020-08-07] MEDS: DOCUSATE SODIUM 100 MG CAPSULE PO SCH ×2 (07:39→21:04)
[2020-08-07] MEDS: VANCOMYCIN 1,500 MG in 0.9 % SODIUM CHLORIDE 500 ML IV SCH (09:00)
[2020-08-07] MEDS: 0.9 % SODIUM CHLORIDE 250 ML IV SCH ×2 (09:51→18:30)
[2020-08-07] MEDS: 0.9 % SODIUM CHLORIDE 10 ML SYRINGE IV SCH ×2 (09:55→21:02)
[2020-08-07] MEDS: HEPARIN 5,000 UNIT/ML VIAL SQ SCH ×2 (09:59→21:04)
[2020-08-07] MEDS: CHLORHEXIDINE GLUCONATE 1 ML ORAL.SOL SWABMOUTH SCH (09:59)
[2020-08-07] MEDS: FAMOTIDINE/PF 20 MG/2 ML VIAL IV SCH ×2 (09:59→21:04)
--- NOTE | 2020-08-07 10:27 | XRay Report ---
HISTORY: Intubated short of breath altered level of consciousness, follow-up infiltrates FINDINGS: Endotracheal tube nasogastric tube and right subclavian lines remain well-positioned. There is no pneumothorax. There is still moderate consolidation of the lung parenchyma, predominantly in the lower lobes. Superimposed upon this are small bilateral pleural effusions. There is a vague haziness in the lung parenchyma in the upper lobes and the pulmonary vessels in the upper lobes appear engorged. The heart is mildly enlarged. Comparison with the prior exams from 08/05 and 08/06/2020 show worsening consolidation in both lower lobes. IMPRESSION: Worsening consolidation in both lungs which may be due to a combination of atelectasis, pleural fluid and pneumonia. Pulmonary vascular congestion Interpreted and Authenticated by: Bart Greene 08/07/20
[2020-08-07] MEDS: INSULIN LISPRO 1 UNIT/0.01 ML UNIT SQ SCH ×3 (11:30→21:02)
--- NOTE | 2020-08-07 11:54 | Internal Med Progress Note ---
SUBJECTIVE Subjective Patient information: Note initiated : 08/07/20 at 11:49 am Service Date, if different from initiated Date: [] Patient: Janki Pruett 85 y/o F admitted on 08/04/20 for SOB, Altered LOC. Chief Complaint: [] Interval history: Ms. Pruett is a 85 year old F who lives with her son and carries a complex past medical history including COPD/CHF/CKD stage III/HLD Who presented to the ER with 5 days onset of worsening shortness of breath/weaknes, cough and progressive dyspnea limiting her functionality. Her son found her increasingly confused lethargic and unable to perform ADLs over the last 24 hours. With increasing concerns she was brought into the ER. Initial work-up was consistent with bilateral chest infiltrates suggestive of pneumonia. White count 14.6, potassium 5.2, BNP 3131. Patient was started on diuretics due to suspicion of superimposed CHF. Cultures were drawn and antibiotics initiated. Patient remai emily increasingly labored with impending respiratory compromise. Stat ABG revealed 7.03/PCO2 150/117 on 60% FiO2 BiPAP. Patient was emergently intubated due to life-threatening respiratory acidosis a nd hypoventilation. Initial Aragon 2 score 21 Subsequently hospitalist service was consulted. At the time of my evaluation patient is accompanied with her daughter. She was able to answer most the question. Patient is currently on mechanical ventilation AC settings rate 16. Drummond is draining clear urine Review of systems could not be performed. However daughter does endorse that she has been coughing and getting progressively short of breath. Also associated confusion consistent with history as above. 08/05-patient currently mechanical ventilation on propofol/fentanyl sedation. Currently on Levophed to maintain MAP at goal. ABG this morning 7.5 8/54. Vent settings changed to 6 to 8 cc IBW /RR down to 12-14 target minute ventilation 6 L. White count 12.6, creatinine 0.9, phosphorus 1.7 on replacement, initiate tube feeds, pro-Noel 0.3, urine WBCs 12. Continuing broad-spectrum antibiotics including cefepime/vancomycin along with Solu-Medrol. Sedation holiday in a.m. and assessment of RSBI. Anticipate vent weaning in 48 hours 08/06-patient started diuresing well. Sedation holiday this a.m. Alert and respond to commands. Daughter at bedside. Multiple concerns and questions addressed including antibiotics/imaging/blood work/echocardiogram and plan of care. White count 14.6.Interval improvement in chest imaging. Switch to midazolam/fentanyl due to bradycardia arrhythmia from propofol. Off Levophed. Hemodynamic stabilizing. Creatinine 1.9. Drummond is draining clear urine. Troponin 0.05 secondary sepsis endorgan dysfunction. ABG this morning 7.5 on 40% FiO2 AC 450 cc/12 08/07-patient doing well. Overnight on AC mechanical ventilation. Sedation holiday since this a.m. Diuresing well. Frequency tidal around 80. Patient alert. Off pressors. Good urine output. White count downtrending at 13,000, creatinine 0.8, interval chest imaging lateral worsening consolidation/vascular congestion. Continuing diuresis. Plan extubation today and switch to noninvasive ventilation if required. Continue steroids/antibiotic coverage. Aggressive pulmonary toilet postextubation. Constitutional Vitals: Vital Signs Temp Pulse Resp BP Pulse Ox 99.1 F H 52 L 24 H 134/44 96 08/07/20 10:31 08/07/20 07:02 08/07/20 11:38 08/07/20 10:31 08/07/20 11:40 Period Temp Pulse Resp BP Sys/Taveras Pulse Ox Last 24 Hr 98.7 F-99.4 F 35-99 0-24 98-166/38-150 91-99 Intake and Output 08/06/20 08/07/20 08/07/20 21:59 05:59 13:59 Intake Total 690 850 225 Output Total 1685 1030 967 Balance -995 -180 -742 Weight 110.586 kg Alert and respond to commands on mechanical ventilation Tube feeds per OG Drummond is draining clear urine Improved lymphedema No telemetry events except for occasional bradycardia Intake & Output: Intake & Output 08/06/20 08/07/20 08/07/20 21:59 05:59 13:59 Intake Total 690 850 225 Output Total 1685 1030 967 Balance -995 -180 -742 Weight 110.586 kg Intake: IV 386 463 36 Sodium Chloride 0.9% 250 ml @ 250 250 TKO IV .Q0M [facility] Rx#:[id number] Versed 50 mg In Sodium Chloride 27 39 15 0.9% 90 ml @ 3 MG/HR 6 mls/hr IV Q16H [facility] Rx#:[id number] Levophed 8 mg In Sodium 14 21 Chloride 0.9% 242 ml @ 10 MCG/ MIN 18.75 mls/hr IV Q14H [facility] Rx #:[id number] fentaNYL 2,500 MCG In Sodium 30 124 Chloride 0.9% 200 ml @ 25 MCG/ HR 2.5 mls/hr IV Q24H [facility] Rx#: [id number] Tube Feeding 244 327 159 GI Tube Flush 60 60 30 Output: Urine Catheter Amount 3862 1030 967 Other: Urine Appearance Clear Clear Clear Uretheral ([place]) Clear Clear Clear Urine Color Straw Straw Pale Uretheral (D[place]mond) Straw Pale Pale Urine Odor Normal Normal Stool Size Smear Stool Color Brown OBJ DATA Labs CBC & Chem 7: 08/07/20 05:35 08/07/20 05:35 Labs: Abnormal Lab Results 08/07/20 08/07/20 08/06/20 05:35 05:35 13:19 WBC 13.0 H RBC 3.60 L Hgb 9.5 L Hct 30.7 L POC Hct 28 L MCHC 30.9 L RDW 14.7 H Neut % (Auto) 86.4 H Lymph % (Auto) 5.0 L Lymph # (Auto) 0.65 L [place] # (Auto) 1.10 H Absolute Neutrophils 11.23 H Potassium POC Chloride 94 L Chloride Carbon Dioxide 39 H POC Total CO2 34 H Anion Gap 3.0 L POC BUN 29 H BUN 31 H Glucose 146 H POC Glucose 129 H Calcium 7.9 L POC WB Ioniz Calcium 1.08 L Phosphorus GGT 81 H AST 108 H ALT 78 H Lactate Dehydrogenase 248 H Troponin T NT-Pro-B Natriuret Pep Total Protein 5.1 L Albumin 2.6 L Procalcitonin Urine Appearance Urine Protein Urine RBC Urine WBC Urine Bacteria Hyaline Casts Urine Mucus Vancomycin Trough 08/06/20 08/06/20 08/06/20 08:08 04:55 04:55 WBC 14.6 H RBC 3.58 L Hgb 9.4 L Hct 30.7 L POC Hct MCHC 30.6 L RDW 14.7 H Neut % (Auto) 88.4 H Lymph % (Auto) 5.4 L Lymph # (Auto) 0.79 L [place] # (Auto) Absolute Neutrophils 12.91 H Potassium POC Chloride Chloride Carbon Dioxide 33 H POC Total CO2 Anion Gap POC BUN BUN 30 H Glucose 131 H POC Glucose Calcium 8.4 L POC WB Ioniz Calcium Phosphorus GGT AST ALT Lactate Dehydrogenase Troponin T NT-Pro-B Natriuret Pep Total Protein 5.6 L Albumin 3.0 L Procalcitonin Urine Appearance Urine Protein Urine RBC Urine WBC Urine Bacteria Hyaline Casts Urine Mucus Vancomycin Trough 22.3 H* 08/05/20 08/05/20 08/05/20 19:25 05:36 05:35 WBC RBC Hgb Hct POC Hct MCHC RDW Neut % (Auto) Lymph % (Auto) Lymph # (Auto) [place] # (Auto) Absolute Neutrophils Potassium POC Chloride Chloride 93 L 95 L Carbon Dioxide 36 H 38 H POC Total CO2 Anion Gap 7.0 L 6.0 L POC BUN BUN 30 H 24 H Glucose 126 H 123 H POC Glucose Calcium 8.4 L 8.5 L POC WB Ioniz Calcium Phosphorus 1.7 L GGT AST ALT Lactate Dehydrogenase Troponin T NT-Pro-B Natriuret Pep Total Protein 5.4 L Albumin 2.7 L Procalcitonin 0.30 H Urine Appearance Urine Protein Urine RBC Urine WBC Urine Bacteria Hyaline Casts Urine Mucus Vancomycin Trough 08/05/20 08/04/20 08/04/20 05:35 18:36 14:10 WBC 12.6 H RBC 3.54 L Hgb 9.4 L Hct 32.1 L POC Hct MCHC 29.3 L RDW Neut % (Auto) 86.3 H Lymph % (Auto) 7.8 L Lymph # (Auto) 0.98 L [place] # (Auto) Absolute Neutrophils 10.88 H Potassium POC Chloride Chloride 92 L Carbon Dioxide 37 H POC Total CO2 Anion Gap POC BUN BUN Glucose 128 H POC Glucose Calcium POC WB Ioniz Calcium Phosphorus GGT AST ALT Lactate Dehydrogenase Troponin T NT-Pro-B Natriuret Pep Total Protein Albumin Procalcitonin Urine Appearance Cloudy A Urine Protein 100 A Urine RBC 6 H Urine WBC 12 H Urine Bacteria Few A Hyaline Casts 60 H Urine Mucus Few A Vancomycin Trough 08/04/20 08/04/20 08/04/20 11:58 11:58 11:58 WBC 14.6 H RBC Hgb 11.7 L Hct POC Hct MCHC 27.5 L RDW Neut % (Auto) 82.0 H Lymph % (Auto) 7.1 L Lymph # (Auto) 1.03 L [place] # (Auto) 1.46 H Absolute Neutrophils 11.96 H Potassium 5.2 H POC Chloride Chloride 92 L Carbon Dioxide 37 H POC Total CO2 Anion Gap POC BUN BUN Glucose 182 H POC Glucose Calcium POC WB Ioniz Calcium Phosphorus GGT AST ALT Lactate Dehydrogenase Troponin T 0.05 H* NT-Pro-B Natriuret Pep 3131.0 H Total Protein Albumin Procalcitonin Urine Appearance Urine Protein Urine RBC Urine WBC Urine Bacteria Hyaline Casts Urine Mucus Vancomycin Trough Meds: Medications Acetaminophen (Acetaminophen 325 Mg Tablet) 650 mg PO Q4-6HP PRN; Protocol PRN Reason: Per Pain Protocol/Fever > 101 Bisacodyl (Bisacodyl 10 Mg Supp.Rect) 10 mg W[place] Q2-3DAYS PRN PRN Reason: Constipation Cefepime HCl (Cefepime 1 Gm Vial) 1 gm IV Q12H [facility] Last Admin: 08/07/20 05:44 Dose: 1 gm Documented by: Chlorhexidine Gluconate (Chlorhexidine Gluconate 1 Ml Oral.Lisbet) 15 ml SWABMOUTH BID [facility] Last Admin: 08/07/20 09:59 Dose: 15 ml Documented by: Diagnostic Test (Pha) (Accu-Chek 1 Each Strip) 1 each FS Q6 [facility] Last Admin: 08/07/20 06:48 Dose: 1 each Documented by: Docusate Sodium (Docusate Sodium 100 Mg Capsule) 100 mg PO BID [facility] Last Admin: 08/07/20 07:39 Dose: Not Given Documented by: Famotidine (Famotidine/Pf 20 Mg/2 Ml Vial) 20 mg IV Q12 [facility] Last Admin: 08/07/20 09:59 Dose: 20 mg Documented by: Furosemide (Furosemide 20 Mg/2 Ml Vial) 20 mg IV Q8 [facility] Last Admin: 08/07/20 05:47 Dose: 20 mg Documented by: Heparin Sodium (Porcine) (Heparin 5,000 Unit/Ml Vial) 5,000 unit SQ Q12 [facility] Last Admin: 08/07/20 09:59 Dose: 5,000 unit Documented by: Potassium Chloride 40 meq/ (Dextrose) 520 mls @ 130 mls/hr IV UD PRN PRN Reason: K+ = or < 3.5 Acetaminophen (Ofirmev) 650 mg in 65 mls @ 130 mls/hr IV Q6HP PRN; Protocol PRN Reason: Per Pain Protocol/Fever > 101 Last Infusion: 08/06/20 18:30 Dose: Infused Documented by: Magnesium Sulfate (Magnesium Sulfate) 2 gm in 50 mls @ 50 mls/hr IV UD PRN PRN Reason: MG = or < 1.7 Fentanyl 2,500 mcg/ Sodium (Chloride) 250 mls @ 2.5 mls/hr IV Q24H [facility]; Protocol Last Titration: 08/07/20 05:39 Dose: 100 mcg/hr, 10 mls/hr Documented by: Norepinephrine Bitartrate 8 mg (/ Sodium Chloride) 250 mls @ 18.75 mls/hr IV Q14H [facility]; Protocol Last Titration: 08/07/20 07:30 Dose: 0 mcg/min, 0 mls/hr Documented by: Sodium Chloride (Sodium Chloride 0.9%) 250 mls @ 0 mls/hr IV .Q0M [facility] Last Admin: 08/06/20 23:56 Dose: 20 mls/hr Documented by: Midazolam HCl 50 mg/ Sodium (Chloride) 100 mls @ 6 mls/hr IV Q16H [facility]; Protocol Last Titration: 08/07/20 09:23 Dose: Infused Documented by: Sodium Chloride (Sodium Chloride 0.9%) 250 mls @ 20 mls/hr IV .[id number] [facility] Last Admin: 08/07/20 09:51 Dose: Not Given Documented by: Vancomycin HCl 1,500 mg/ (Sodium Chloride) 500 mls @ 333.3 mls/hr IV DAILY [facility] Last Admin: 08/07/20 09:00 Dose: 333.3 mls/hr Documented by: Iron Carb/Multivit/[place]/Folic Acid (Multivit,Ther Iron,Ca,Fa & Min 1 Tablet) 1 tab PO DAILY [facility] Last Admin: 08/07/20 07:39 Dose: Not Given Documented by: Melatonin (Melatonin 3 Mg Tablet) 3 mg PO HSP PRN PRN Reason: Insomnia Methylprednisolone Sodium Succinate (Methylprednisolone Sod Succ 40 Mg/Ml Vial) 40 mg IV Q8H [facility] Last Admin: 08/07/20 05:46 Dose: 40 mg Documented by: Metoprolol Tartrate (Metoprolol Tartrate 5 Mg/5 Ml Vial) 5 mg IV Q5M PRN PRN Reason: Heart Rate > 140 bpm Ondansetron HCl (Ondansetron 4 Mg Odt Tablet) 4 mg SL Q4-6HP PRN; Protocol PRN Reason: Nausea And Vomiting Ondansetron HCl (Ondansetron 4 Mg/2 Ml Vial) 4 mg IV Q4-6HP PRN; Protocol PRN Reason: Nausea And Vomiting Polyethylene Glycol (Polyethylene Glycol 3350 17 Gm Packet) 17 gm PO DAILYP PRN PRN Reason: Constipation Potassium Chloride (Potassium Chloride 20 Meq Packet) 40 meq PO DAILYP PRN PRN Reason: K+ < 3.5 Senna/Docusate Sodium (Sennosides/Docusate Sodium 1 Tab Tablet) 1 tab PO HS [facility] Last Admin: 08/06/20 20:20 Dose: Not Given Documented by: Sodium Chloride (0.9 % Sodium Chloride 10 Ml Syringe) 10 ml IV UD PRN PRN Reason: FLUSH Sodium Chloride (0.9 % Sodium Chloride 10 Ml Syringe) 10 ml IV Q12 [facility] Last Admin: 08/07/20 09:55 Dose: 10 ml Documented by: Vancomycin HCl (Vancomycin Per Pharmacy) 1 order IV UD [facility]; Protocol A/P Narrative A/P Narrative: * Acute respiratory failure with hypoxia and hypercapnia-clinically improving. Plan extubation today. Parameters favorable with frequency/tidal volume 80. * Bilateral pneumonia with superimposed CHF. Continue antibiotic coverage. Clinically improving however radiological persistent consolidation * Septic shock -clinically resolved. White count down to 13 K from 14.6. Off vasopressors * Mechanical ventilation - Plan extubation today * hyperkalemia-resolved * Acute exacerbation of COPD-on bronchodilators/steroids * History of CHF with acute decompensation-repeat echocardiogram results pending. Optimize treatment based on echo finding * Degenerative joint disease. * Prophylaxis Heparin/H2 antagonist Plan * Plan extubation and switch to NC/noninvasive ventilation as indicated * Continue gentle diuresis * Continue antibiotic coverage * Physical therapy * Optimize CHF management based on echo findings Critical time spent in excess of 35 minutes on management of mechanical ventilation Time Spent With Patient Time: Total time spent is greater than 50% in coordination of care (as documented) at patient's floor/unit and/or counseling patient: QUALITY VTE Deep Vein Thrombosis/Pulmonary Embolism Present on Admission: No
[2020-08-07] MEDS ORDERED: hydrALAZINE 20 MG/ML VIAL IV PRN (13:30)
[2020-08-07] MEDS ORDERED: fentaNYL 25 MCG PATCH TOPICAL ONE (13:32)
[2020-08-07] MEDS: IPRATROPIUM/ALBUTEROL 3 ML AMPUL.NEB NEB PRN ×2 (14:05→19:12)
[2020-08-07] MEDS: LORazepam 2 MG/ML VIAL IV PRN ×2 (14:11→19:47)
[2020-08-07] MEDS ORDERED: 0.9 % SODIUM CHLORIDE 250 ML IV SCH (15:30)
[2020-08-07] MEDS: niCARdipine 25 MG in 0.9 % SODIUM CHLORIDE 240 ML IV SCH (16:02)
[2020-08-07] MEDS ORDERED: acetaZOLAMIDE SOD 500 MG VIAL IV ONE (16:33)
[2020-08-07] MEDS ORDERED: predniSONE 20 MG TABLET ONE (17:39)
[2020-08-07] MEDS ORDERED: POTASSIUM CHLORIDE 20 MEQ TABLET PO ONE (17:42)
[2020-08-07] MEDS ORDERED: METOPROLOL TARTRATE 25 MG TABLET ONE (20:23)
[2020-08-07] MEDS: SENNOSIDES/DOCUSATE SODIUM 1 TAB TABLET PO SCH (21:05)
[2020-08-07] MEDS: ACETAMINOPHEN 650 MG/65 ML BAG IV PRN (22:17)
[2020-08-08] MEDS ORDERED: METHOCARBAMOL 750 MG TABLET PO ONE (03:16)
[2020-08-08] MEDS: CEFEPIME 1 GM VIAL IV SCH ×2 (05:41→17:44)
[2020-08-08] MEDS: methylPREDNISolone SOD SUCC 40 MG/ML VIAL IV SCH ×2 (05:42→15:03)
[2020-08-08] MEDS: 0.9 % SODIUM CHLORIDE 250 ML IV SCH (05:49)
[2020-08-08 07:11] LABS: Basophils # (Auto) 0.02 K/mcL (0.00-0.20); Basophils % (Auto) 0.2 % (0.0-2.0); Eosinophils # (Auto) 0 K/mcL (0.00-0.70); Eosinophils % (Auto) 0 % (0.0-7.0); Hematocrit 32.6 % (36.0-48.0); Hemoglobin 10.1 g/dL (12.0-15.0); Lymphocytes # (Auto) 0.64 K/mcL (1.50-4.80); Lymphocytes % (Auto) 5.5 % (15.0-49.0); Mean Cell Volume 86.5 fL (80.0-100.0); Mean Platelet Volume 9.9 fL (7.4-10.4); Monocytes # (Auto) 0.74 K/mcL (0.10-0.90); Monocytes % (Auto) 6.3 % (1.0-12.0); Platelet Count 190 K/mcL (140-440); RBC 3.77 M/mcL (4.00-5.20); Red Cell Distribution Width 14.6 % (11.5-14.5); WBC 11.7 K/mcL (4.5-11.0)
[2020-08-08 07:36] LABS: ALT/SGPT 101 U/L (<40); AST/SGOT 62 U/L (<32); Albumin 2.7 gm/dL (3.2-5.2); Albumin/Globulin Ratio 1.1 (1.0-2.3); Alkaline Phosphatase 86 U/L (39-117); Bilirubin,Direct < 0.2 mg/dL (0-0.3); Bilirubin,Total 0.3 mg/dL (0.1-1.0); Blood Urea Nitrogen 30 mg/dL (8-23); Calcium 8.3 mg/dL (8.6-10.4); Carbon Dioxide 38 mmol/L (22-30); Chloride 95 mmol/L (96-108); Globulin 2.5 gm/dL (2.2-3.7); Glomerular Filtration Rate 78; Glucose 123 mg/dL (70-105); Lactate Dehydrogenase 226 U/L (135-225); Phosphorous 3.4 mg/dL (2.5-4.5); Triglycerides 129 mg/dL (<150); Uric Acid 3.2 mg/dL (2.5-8.0)
[2020-08-08] MEDS: niCARdipine 25 MG in 0.9 % SODIUM CHLORIDE 240 ML IV SCH ×5 (07:36→17:50)
[2020-08-08] MEDS: HEPARIN 5,000 UNIT/ML VIAL SQ SCH ×2 (07:44→20:18)
[2020-08-08] MEDS: FAMOTIDINE/PF 20 MG/2 ML VIAL IV SCH ×2 (07:44→20:18)
[2020-08-08] MEDS: DOCUSATE SODIUM 100 MG CAPSULE PO SCH ×2 (07:44→20:16)
[2020-08-08] MEDS: MULTIVIT,THER IRON,CA,FA & MIN 1 TABLET PO SCH (07:44)
[2020-08-08] MEDS: FUROSEMIDE 20 MG/2 ML VIAL IV SCH ×2 (07:44→15:50)
[2020-08-08] MEDS: INSULIN LISPRO 1 UNIT/0.01 ML UNIT SQ SCH ×4 (07:44→20:17)
[2020-08-08] MEDS: 0.9 % SODIUM CHLORIDE 10 ML SYRINGE IV SCH ×2 (07:46→20:16)
[2020-08-08] MEDS ORDERED: ASPIRIN 81 MG TAB.CHEW ONE (08:28)
[2020-08-08] MEDS ORDERED: METOPROLOL TARTRATE 25 MG TABLET ONE (08:29)
[2020-08-08] MEDS ORDERED: guaiFENesin 600 MG TAB.SR.12H PO ONE (08:29)
[2020-08-08] MEDS ORDERED: FUROSEMIDE 40 MG/4 ML VIAL IV ONE (08:29)
[2020-08-08] MEDS ORDERED: predniSONE 20 MG TABLET ONE (08:29)
[2020-08-08] MEDS ORDERED: POTASSIUM CHLORIDE 10 MEQ TABLET PO ONE (08:30)
[2020-08-08] MEDS ORDERED: LISINOPRIL 10 MG TABLET ONE (08:35)
[2020-08-08] MEDS ORDERED: CARVEDILOL 6.25 MG TABLET ONE (08:35)
[2020-08-08] MEDS ORDERED: ENOXAPARIN 40 MG/0.4 ML SYRINGE ONE (08:44)
[2020-08-08] MEDS: VANCOMYCIN 1,500 MG in 0.9 % SODIUM CHLORIDE 500 ML IV SCH (09:19)
--- NOTE | 2020-08-08 09:40 | XRay Report ---
HISTORY: Extubated, short of breath, follow-up pulmonary infiltrates FINDINGS: The endotracheal tube and nasogastric tube have been removed since yesterday. There is still a right subclavian line in the superior vena cava. There is persistent moderate consolidation in both lower lobes with superimposed small pleural effusions. Prominent increased interstitial lung markings are present in the upper lobes. The heart remains mildly enlarged. Comparison with the prior exam from 08/07/20 shows no significant change in appearance of the infiltrates or pleural effusions. IMPRESSION: Stable pneumonia or atelectasis in both lower lobes with superimposed pleural effusions. Stable cardiomegaly. Underlying pulmonary vascular congestion cannot be excluded. Interpreted and Authenticated by: Bart Greene 08/08/20
[2020-08-08] MEDS ORDERED: METHOCARBAMOL 750 MG TABLET PO PRN (09:52)
[2020-08-08] MEDS ORDERED: HYDROCODONE/APAP 7.5/325MG TABLET PO PRN (09:52)
[2020-08-08] MEDS ORDERED: traMADol 50 MG TABLET PO PRN (09:52)
--- NOTE | 2020-08-08 10:00 | Internal Med Progress Note ---
SUBJECTIVE Subjective Patient information: Note initiated : 08/08/20 at 9:53 am Service Date, if different from initiated Date: [] Patient: Janki Pruett 85 y/o F admitted on 08/04/20 for SOB, Altered LOC. Chief Complaint: [] Interval history: Ms. Pruett is a 85 year old F who lives with her son and carries a complex past medical history including COPD/CHF/CKD stage III/HLD Who presented to the ER with 5 days onset of worsening shortness of breath/weaknes, cough and progressive dyspnea limiting her functionality. Her son found her increasingly confused lethargic and unable to perform ADLs over the last 24 hours. With increasing concerns she was brought into the ER. Initial work-up was consistent with bilateral chest infiltrates suggestive of pneumonia. White count 14.6, potassium 5.2, BNP 3131. Patient was started on diuretics due to suspicion of superimposed CHF. Cultures were drawn and antibiotics initiated. Patient remained increasingly labored with impending respiratory compromise. Stat ABG revealed 7.03/PCO2 150/117 on 60% FiO2 BiPAP. Patient was emergently intubated due to life-threatening respiratory acidosis an d hypoventilation. Initial [place] 2 score 21 Subsequently hospitalist service was consulted. At the time of my evaluation patient is accompanied with her daughter. She was able to answer most the question. Patient is currently on mechanical ventilation AC settings rate 16. [place] is draining clear urine Review of systems could not be performed. However daughter does endorse that she has been coughing and getting progressively short of breath. Also associated confusion consistent with history as above. 08/05-patient currently mechanical ventilation on propofol/fentanyl sedation. Currently on Levophed to maintain MAP at goal. ABG this morning 7.5 /. Vent settings changed to 6 to 8 cc IBW /RR down to 12-14 target minute ventilation 6 L. White count 12.6, creatinine 0.9, phosphorus 1.7 on replacement, initiate tube feeds, pro-Noel 0.3, urine WBCs 12. Continuing broad-spectrum antibiotics including cefepime/vancomycin along with Solu-Medrol. Sedation holiday in a.m. and assessment of RSBI. Anticipate vent weaning in 48 hours 08/06-patient started diuresing well. Sedation holiday this a.m. Alert and respond to commands. Daughter at bedside. Multiple concerns and questions addressed including antibiotics/imaging/blood work/echocardiogram and plan of care. White count 14.6.Interval improvement in chest imaging. Switch to midazolam/fentanyl due to bradycardia arrhythmia from propofol. Off Levophed. Hemodynamic stabilizing. Creatinine 1.9. Drum[place] is draining clear urine. Troponin 0.05 secondary sepsis endorgan dysfunction. ABG this morning 7.5 on 40% FiO2 AC 450 cc/12 08/07-patient doing well. Overnight on AC mechanical ventilation. Sedation holiday since this a.m. Diuresing well. Frequency tidal around 80. Patient alert. Off pressors. Good urine output. White count downtrending at 13,000, creatinine 0.8, interval chest imaging lateral worsening consolidation/vascular congestion. Continuing diuresis. Plan extubation today and switch to noninvasive ventilation if required. Continue steroids/antibiotic coverage. Aggressive pulmonary toilet postextubation. 08/08-patient overnight on noninvasive ventilation on 45% FiO2. On nasal cannula oxygen this morning, systolics 200s requiring nicardipine drip. Transition to oral antihypertensives. Able to communicate, Drum[place] is draining clear urine, on 20 IV Lasix every 8. Interval chest imaging persistent bilateral chest infiltrates with pleural effusion. On cefepime/vancomycin. White count down to 11.7, creatinine 0.7, blood sugars at goal, LFTs downtrending. No family at bedside. Continue weaning noninvasive ventilation as tolerated. Serial imaging/diuresis, start dietary intervention and maintain aspiration precautions Constitutional Vitals: Vital Signs Temp Pulse Resp BP Pulse Ox 98.8 F 59 L 21 154/49 94 08/08/20 09:42 08/08/20 05:00 08/08/20 09:42 08/08/20 09:42 08/08/20 09:42 Period Temp Pulse Resp BP Sys/[place] Pulse Ox Last 24 Hr 98 F-99.1 F 59-105 17-37 111-206/36-104 84-97 Intake and Output 08/07/20 08/08/20 08/08/20 21:59 05:59 13:59 Intake Total 114 291 0 Output Total 605 1002 216 Balance -491 -711 -216 Weight 109.406 kg On noninvasive ventilation now trial on nasal cannula 6 L O2 Drum[place] draining clear urine Improving lymphedema Minimal anxiety Intake & Output: Intake & Output 08/07/20 08/08/20 08/08/20 21:59 05:59 13:59 Intake Total 114 291 0 Output Total 605 1002 216 Balance -491 -711 -216 Weight 109.406 kg Intake: IV 114 291 0 Sodium Chloride 0.9% 250 ml @ 5 226 20 mls/hr IV .[id number] [facility] Rx#: [id number] Cardene 25 MG In Sodium 109 0 Chloride 0.9% 240 ml @ 5 MG/HR 50 mls/hr IV Q5H [facility] Rx#: [id number] Output: Urine Catheter Amount 605 1002 216 Other: Urine Appearance Clear Clear Clear Uretheral ([place]) Clear Clear Urine Color Straw Straw Dark Yellow Uretheral ([place]) Straw Pale Urine Odor Normal Normal Stool Size Smear Stool Color Brown Stool Consistency Watery # Bowel Movements 1 # of times incontinent of 0 Bowels OBJ DATA Labs CBC & Chem 7: 08/08/20 04:50 08/08/20 04:50 Labs: Abnormal Lab Results 08/08/20 08/08/20 08/07/20 04:50 04:50 05:35 WBC 11.7 H RBC 3.77 L Hgb 10.1 L Hct 32.6 L POC Hct MCHC RDW 14.6 H Neut % (Auto) 88.0 H Lymph % (Auto) 5.5 L Lymph # (Auto) 0.64 L [place] # (Auto) Absolute Neutrophils 10.30 H POC Chloride Chloride 95 L Carbon Dioxide 38 H 39 H POC Total CO2 Anion Gap 6.0 L 3.0 L POC BUN BUN 30 H 31 H Glucose 123 H 146 H POC Glucose Calcium 8.3 L 7.9 L POC WB Ioniz Calcium GGT 102 H 81 H AST 62 H 108 H ALT 101 H 78 H Lactate Dehydrogenase 226 H 248 H Total Protein 5.2 L 5.1 L Albumin 2.7 L 2.6 L Vancomycin Trough 08/07/20 08/06/20 08/06/20 05:35 13:19 08:08 WBC 13.0 H RBC 3.60 L Hgb 9.5 L Hct 30.7 L POC Hct 28 L MCHC 30.9 L RDW 14.7 H Neut % (Auto) 86.4 H Lymph % (Auto) 5.0 L Lymph # (Auto) 0.65 L [place] # (Auto) 1.10 H Absolute Neutrophils 11.23 H POC Chloride 94 L Chloride Carbon Dioxide POC Total CO2 34 H Anion Gap POC BUN 29 H BUN Glucose POC Glucose 129 H Calcium POC WB Ioniz Calcium 1.08 L GGT AST ALT Lactate Dehydrogenase Total Protein Albumin Vancomycin Trough 22.3 H* 08/06/20 08/06/20 08/05/20 04:55 04:55 19:25 WBC 14.6 H RBC 3.58 L Hgb 9.4 L Hct 30.7 L POC Hct MCHC 30.6 L RDW 14.7 H Neut % (Auto) 88.4 H Lymph % (Auto) 5.4 L Lymph # (Auto) 0.79 L [place] # (Auto) Absolute Neutrophils 12.91 H POC Chloride Chloride 93 L Carbon Dioxide 33 H 36 H POC Total CO2 Anion Gap 7.0 L POC BUN BUN 30 H 30 H Glucose 131 H 126 H POC Glucose Calcium 8.4 L 8.4 L POC WB Ioniz Calcium GGT AST ALT Lactate Dehydrogenase Total Protein 5.6 L Albumin 3.0 L Vancomycin Trough Meds: Medications Acetaminophen (Acetaminophen 325 Mg Tablet) 650 mg PO Q4-6HP PRN; Protocol PRN Reason: Per Pain Protocol/Fever > 101 Hydrocodone Bitart/Acetaminophen (Hydrocodone/Apap 7.5/325mg Tablet) 1 tab PO Q6H PRN; Protocol PRN Reason: pain Albuterol/Ipratropium (Ipratropium/Albuterol 3 Ml Ampul.Neb) 3 ml NEB Q2HP PRN PRN Reason: Shortness Of Breath Last Admin: 08/07/20 19:12 Dose: 3 ml Documented by: Bisacodyl (Bisacodyl 10 Mg Supp.Rect) 10 mg TX Q2-3DAYS PRN PRN Reason: Constipation Cefepime HCl (Cefepime 1 Gm Vial) 1 gm IV Q12H [facility] Last Admin: 08/08/20 05:41 Dose: 1 gm Documented by: Diagnostic Test (Pha) (Accu-Chek 1 Each Strip) 1 each FS ACHS [facility] Last Admin: 08/08/20 07:43 Dose: 1 each Documented by: Docusate Sodium (Docusate Sodium 100 Mg Capsule) 100 mg PO BID [facility] Last Admin: 08/08/20 07:44 Dose: 100 mg Documented by: Famotidine (Famotidine/Pf 20 Mg/2 Ml Vial) 20 mg IV Q12 [facility] Last Admin: 08/08/20 07:44 Dose: 20 mg Documented by: Furosemide (Furosemide 20 Mg/2 Ml Vial) 20 mg IV Q8 [facility] Last Admin: 08/08/20 07:44 Dose: 20 mg Documented by: Heparin Sodium (Porcine) (Heparin 5,000 Unit/Ml Vial) 5,000 unit SQ Q12 [facility] Last Admin: 08/08/20 07:44 Dose: 5,000 unit Documented by: Hydralazine HCl (Hydralazine 20 Mg/Ml Vial) 10 mg IV Q4HP PRN PRN Reason: Hypertension Last Admin: 08/07/20 13:52 Dose: 10 mg Documented by: Potassium Chloride 40 meq/ (Dextrose) 520 mls @ 130 mls/hr IV UD PRN PRN Reason: K+ = or < 3.5 Acetaminophen (Ofirmev) 650 mg in 65 mls @ 130 mls/hr IV Q6HP PRN; Protocol PRN Reason: Per Pain Protocol/Fever > 101 Last Infusion: 08/07/20 22:47 Dose: Infused Documented by: Magnesium Sulfate (Magnesium Sulfate) 2 gm in 50 mls @ 50 mls/hr IV UD PRN PRN Reason: MG = or < 1.7 Vancomycin HCl 1,500 mg/ (Sodium Chloride) 500 mls @ 333.3 mls/hr IV DAILY [facility] Last Admin: 08/08/20 09:19 Dose: 333.3 mls/hr Documented by: Nicardipine HCl 25 mg/ Sodium (Chloride) 250 mls @ 50 mls/hr IV Q5H [facility]; Protocol Last Admin: 08/08/20 07:44 Dose: Not Given Documented by: Sodium Chloride (Sodium Chloride 0.9%) 250 mls @ 20 mls/hr IV .[id number] [facility] Last Admin: 08/08/20 05:49 Dose: 20 mls/hr Documented by: Insulin Human Lispro (Insulin Lispro 1 Unit/0.01 Ml Unit) 0 unit SQ ACHS [facility]; Protocol Last Admin: 08/08/20 07:44 Dose: Not Given Documented by: Iron Carb/Multivit/[employer]ensed [employer]/Folic Acid (Multivit,Ther Iron,Ca,Fa & Min 1 Tablet) 1 tab PO DAILY [facility] Last Admin: 08/08/20 07:44 Dose: 1 tab Documented by: Lorazepam (Lorazepam 2 Mg/Ml Vial) 0.5 mg IV Q4HP PRN PRN Reason: ANXIETY/SEDATION Last Admin: 08/07/20 19:47 Dose: 0.5 mg Documented by: Melatonin (Melatonin 3 Mg Tablet) 3 mg PO HSP PRN PRN Reason: Insomnia Methocarbamol (Methocarbamol 750 Mg Tablet) 750 mg PO Q8H PRN PRN Reason: muscle spasm Methylprednisolone Sodium Succinate (Methylprednisolone Sod Succ 40 Mg/Ml Vial) 40 mg IV Q8H [facility] Last Admin: 08/08/20 05:42 Dose: 40 mg Documented by: Metoprolol Tartrate (Metoprolol Tartrate 5 Mg/5 Ml Vial) 5 mg IV Q5M PRN PRN Reason: Heart Rate > 140 bpm Metoprolol Tartrate (Metoprolol Tartrate 25 Mg Tablet) 25 mg PO BID [facility] Non-Formulary Medication (Aspirin [Adult Low Dose Aspirin]) 81 mg PO DAILY [facility] Ondansetron HCl (Ondansetron 4 Mg Odt Tablet) 4 mg SL Q4-6HP PRN; Protocol PRN Reason: Nausea And Vomiting Ondansetron HCl (Ondansetron 4 Mg/2 Ml Vial) 4 mg IV Q4-6HP PRN; Protocol PRN Reason: Nausea And Vomiting Polyethylene Glycol (Polyethylene Glycol 3350 17 Gm Packet) 17 gm PO DAILYP PRN PRN Reason: Constipation Last Admin: 08/08/20 07:44 Dose: 17 gm Documented by: Potassium Chloride (Potassium Chloride 20 Meq Packet) 40 meq PO DAILYP PRN PRN Reason: K+ < 3.5 Potassium Chloride (Potassium Chloride 10 Meq Tablet) 10 meq PO BID [facility] Senna/Docusate Sodium (Sennosides/Docusate Sodium 1 Tab Tablet) 1 tab PO HS [facility] Last Admin: 08/07/20 21:05 Dose: Not Given Documented by: Sodium Chloride (0.9 % Sodium Chloride 10 Ml Syringe) 10 ml IV UD PRN PRN Reason: FLUSH Sodium Chloride (0.9 % Sodium Chloride 10 Ml Syringe) 10 ml IV Q12 [facility] Last Admin: 08/08/20 07:46 Dose: 10 ml Documented by: Tramadol HCl (Tramadol 50 Mg Tablet) 50 mg PO Q4HP PRN; Protocol PRN Reason: pain Vancomycin HCl (Vancomycin Per Pharmacy) 1 order IV UD [facility]; Protocol A/P Narrative A/P Narrative: * Acute respiratory failure with hypoxia and hypercapnia-clinically improving. Extubated 20 a.m., now on noninvasive ventilation and weaning as tolerated * Bilateral pneumonia with superimposed CHF. Clinically responding to antibiotics, continue diuresis. Serial imaging * Septic shock -clinically resolved. White count down to 11.7 K from 14.6. Off vasopressors * History of hypertension now suboptimally controlled post extubation. Start home medication * Acute exacerbation of COPD-on bronchodilators/steroids * History of CHF with acute decompensation-repeat echocardiogram results pending. * Degenerative joint disease. * Prophylaxis Heparin/H2 antagonist Plan * Wean noninvasive ventilation as tolerated * Continue gentle diuresis, await echo results to further optimize CHF management * Continue antibiotic coverage * Continue nutrition support/physical therapy * Discharge planning likely SNF Critical time spent in excess of 35 minutes on management of noninvasive ventilation/hypoxic respiratory failure Time Spent With Patient Time: Total time spent is greater than 50% in coordination of care (as documented) at patient's floor/unit and/or counseling patient: QUALITY VTE Deep Vein Thrombosis/Pulmonary Embolism Present on Admission: No
[2020-08-08] MEDS ORDERED: METOPROLOL TARTRATE 25 MG TABLET PO ONE (12:13)
[2020-08-08] MEDS: ACETAMINOPHEN 650 MG/65 ML BAG IV PRN (13:15)
--- NOTE | 2020-08-08 14:18 | Internal Med Progress Note ---
SUBJECTIVE Subjective Patient information: Note initiated : 08/08/20 at 2:08 pm Service Date, if different from initiated Date: [] Patient: Janki Pruett 85 y/o F admitted on 08/04/20 for SOB, Altered LOC. Chief Complaint: [] Interval history: Ms. Pruett is a 85 year old F who lives with her son and carries a complex past medical history including COPD/CHF/CKD stage III/HLD Who presented to the ER with 5 days onset of worsening shortness of breath/weaknes, cough and progressive dyspnea limiting her functionality. Her son found her increasingly confused lethargic and unable to perform ADLs over the last 24 hours. With increasing concerns she was brought into the ER. Initial work-up was consistent with bilateral chest infiltrates suggestive of pneumonia. White count 14.6, potassium 5.2, BNP 3131. Patient was started on diuretics due to suspicion of superimposed CHF. Cultures were drawn and antibiotics initiated. Patient remained increasingly labored with impending respiratory compromise. Stat ABG revealed 7.03/PCO2 150/117 on 60% FiO2 BiPAP. Patient was emergently intubated due to life-threatening respiratory acidosis an d hypoventilation. Initial [place] 2 score 21 Subsequently hospitalist service was consulted. At the time of my evaluation patient is accompanied with her daughter. She was able to answer most the question. Patient is currently on mechanical ventilation AC settings rate 16. [place]mond is draining clear urine Review of systems could not be performed. However daughter does endorse that she has been coughing and getting progressively short of breath. Also associated confusion consistent with history as above. 08/05-patient currently mechanical ventilation on propofol/fentanyl sedation. Currently on Levophed to maintain MAP at goal. ABG this morning 7.5 8/54. Vent settings changed to 6 to 8 cc IBW /RR down to 12-14 target minute ventilation 6 L. White count 12.6, creatinine 0.9, phosphorus 1.7 on replacement, initiate tube feeds, pro-Noel 0.3, urine WBCs 12. Continuing broad-spectrum antibiotics including cefepime/vancomycin along with Solu-Medrol. Sedation holiday in a.m. and assessment of RSBI. Anticipate vent weaning in 48 hours 08/06-patient started diuresing well. Sedation holiday this a.m. Alert and respond to commands. Daughter at bedside. Multiple concerns and questions addressed including antibiotics/imaging/blood work/echocardiogram and plan of care. White count 14.6.Interval improvement in chest imaging. Switch to midazolam/fentanyl due to bradycardia arrhythmia from propofol. Off Levophed. Hemodynamic stabilizing. Creatinine 1.9. Drummond is draining clear urine. Troponin 0.05 secondary sepsis endorgan dysfunction. ABG this morning 7.5 on 40% FiO2 AC 450 cc/12 08/07-patient doing well. Overnight on AC mechanical ventilation. Sedation holiday since this a.m. Diuresing well. Frequency tidal around 80. Patient alert. Off pressors. Good urine output. White count downtrending at 13,000, creatinine 0.8, interval chest imaging lateral worsening consolidation/vascular congestion. Continuing diuresis. Plan extubation today and switch to noninvasive ventilation if required. Continue steroids/antibiotic coverage. Aggressive pulmonary toilet postextubation. 08/08-patient overnight on noninvasive ventilation on 45% FiO2. On nasal cannula oxygen this morning, systolics 200s requiring nicardipine drip. Transition to oral antihypertensives. Able to communicate, Drummond is draining clear urine, on 20 IV Lasix every 8. Interval chest imaging persistent bilateral chest infiltrates with pleural effusion. On cefepime/vancomycin. White count down to 11.7, creatinine 0.7, blood sugars at goal, LFTs downtrending. No family at bedside. Continue weaning noninvasive ventilation as tolerated. Serial imaging/diuresis, start dietary intervention and maintain aspiration precautions Constitutional Vitals: Vital Signs Temp Pulse Resp BP Pulse Ox 98.5 F 59 L 24 H 195/66 95 08/08/20 12:02 08/08/20 05:00 08/08/20 12:02 08/08/20 12:02 08/08/20 12:02 Period Temp Pulse Resp BP Sys/[place] Pulse Ox Last 24 Hr 98 F-98.8 F 59-105 17-37 111-199/36-104 93-97 Intake and Output 08/08/20 08/08/20 08/08/20 05:59 13:59 21:59 Intake Total 291 107 Output Total 1002 1066 80 Balance -711 -959 -80 Intake & Output: Intake & Output 08/08/20 08/08/20 08/08/20 05:59 13:59 21:59 Intake Total 291 107 Output Total 1002 1066 80 Balance -711 -959 -80 Intake: IV 291 107 Sodium Chloride 0.9% 250 ml @ 226 20 mls/hr IV .[id number] FRANCISCA Rx#: [id number] Cardene 25 MG In Sodium 107 Chloride 0.9% 240 ml @ 5 MG/HR 50 mls/hr IV Q5H [facility] Rx#: [id number] Output: Urine Catheter Amount 1002 1066 80 Other: Urine Appearance Clear Clear Clear Uretheral ([place]mond) Clear Urine Color Straw Dark Yellow Dark Yellow Uretheral ([place]mond) Pale Urine Odor Normal Normal Stool Size Smear Small Stool Color Brown Brown Stool Consistency Watery Loose # Bowel Movements 1 1 # of times incontinent of 0 0 Bowels Exam: General: Alert, Awake, No acute Distress, obese Eyes/N/T: EOMI, Head/Neck: neck supple, CV: RRR, No murmurs, Pulm: b/l, no wheezing Abd: soft, nontender, +BS x4 Ext: no clubbing/cyanosis, b/l LE edema Neuro: Alert, no focal deficits, moves all extremities, Skin: warm/dry OBJ DATA Labs CBC & Chem 7: 08/08/20 04:50 08/08/20 04:50 Labs: Abnormal Lab Results 08/08/20 08/08/20 08/07/20 04:50 04:50 05:35 WBC 11.7 H RBC 3.77 L Hgb 10.1 L Hct 32.6 L POC Hct MCHC RDW 14.6 H Neut % (Auto) 88.0 H Lymph % (Auto) 5.5 L Lymph # (Auto) 0.64 L [place] # (Auto) Absolute Neutrophils 10.30 H POC Chloride Chloride 95 L Carbon Dioxide 38 H 39 H POC Total CO2 Anion Gap 6.0 L 3.0 L POC BUN BUN 30 H 31 H Glucose 123 H 146 H POC Glucose Calcium 8.3 L 7.9 L POC WB Ioniz Calcium GGT 102 H 81 H AST 62 H 108 H ALT 101 H 78 H Lactate Dehydrogenase 226 H 248 H Total Protein 5.2 L 5.1 L Albumin 2.7 L 2.6 L Vancomycin Trough 08/07/20 08/06/20 08/06/20 05:35 13:19 08:08 WBC 13.0 H RBC 3.60 L Hgb 9.5 L Hct 30.7 L POC Hct 28 L MCHC 30.9 L RDW 14.7 H Neut % (Auto) 86.4 H Lymph % (Auto) 5.0 L Lymph # (Auto) 0.65 L [place] # (Auto) 1.10 H Absolute Neutrophils 11.23 H POC Chloride 94 L Chloride Carbon Dioxide POC Total CO2 34 H Anion Gap POC BUN 29 H BUN Glucose POC Glucose 129 H Calcium POC WB Ioniz Calcium 1.08 L GGT AST ALT Lactate Dehydrogenase Total Protein Albumin Vancomycin Trough 22.3 H* 08/06/20 08/06/20 08/05/20 04:55 04:55 19:25 WBC 14.6 H RBC 3.58 L Hgb 9.4 L Hct 30.7 L POC Hct MCHC 30.6 L RDW 14.7 H Neut % (Auto) 88.4 H Lymph % (Auto) 5.4 L Lymph # (Auto) 0.79 L [place] # (Auto) Absolute Neutrophils 12.91 H POC Chloride Chloride 93 L Carbon Dioxide 33 H 36 H POC Total CO2 Anion Gap 7.0 L POC BUN BUN 30 H 30 H Glucose 131 H 126 H POC Glucose Calcium 8.4 L 8.4 L POC WB Ioniz Calcium GGT AST ALT Lactate Dehydrogenase Total Protein 5.6 L Albumin 3.0 L Vancomycin Trough Meds: Medications Acetaminophen (Acetaminophen 325 Mg Tablet) 650 mg PO Q4-6HP PRN; Protocol PRN Reason: Per Pain Protocol/Fever > 101 Hydrocodone Bitart/Acetaminophen (Hydrocodone/Apap 7.5/325mg Tablet) 1 tab PO Q6HP PRN; Protocol PRN Reason: pain Albuterol/Ipratropium (Ipratropium/Albuterol 3 Ml Ampul.Neb) 3 ml NEB Q2HP PRN PRN Reason: Shortness Of Breath Last Admin: 08/07/20 19:12 Dose: 3 ml Documented by: Aspirin (Aspirin 81 Mg Tab.Chew) 81 mg PO DAILY [facility] Bisacodyl (Bisacodyl 10 Mg Supp.Rect) 10 mg MN Q2-3DAYS PRN PRN Reason: Constipation Cefepime HCl (Cefepime 1 Gm Vial) 1 gm IV Q12H FRANCISCA Last Admin: 08/08/20 05:41 Dose: 1 gm Documented by: Diagnostic Test (Pha) (Accu-Chek 1 Each Strip) 1 each FS ACHS [facility]ISCA Last Admin: 08/08/20 13:01 Dose: 1 each Documented by: Docusate Sodium (Docusate Sodium 100 Mg Capsule) 100 mg PO BID [facility] Last Admin: 08/08/20 07:44 Dose: 100 mg Documented by: Famotidine (Famotidine/Pf 20 Mg/2 Ml Vial) 20 mg IV Q12 [facility] Last Admin: 08/08/20 07:44 Dose: 20 mg Documented by: Furosemide (Furosemide 20 Mg/2 Ml Vial) 20 mg IV Q8 [facility] Last Admin: 08/08/20 07:44 Dose: 20 mg Documented by: Heparin Sodium (Porcine) (Heparin 5,000 Unit/Ml Vial) 5,000 unit SQ Q12 [facility] Last Admin: 08/08/20 07:44 Dose: 5,000 unit Documented by: Hydralazine HCl (Hydralazine 20 Mg/Ml Vial) 10 mg IV Q4HP PRN PRN Reason: Hypertension Last Admin: 08/07/20 13:52 Dose: 10 mg Documented by: Potassium Chloride 40 meq/ (Dextrose) 520 mls @ 130 mls/hr IV UD PRN PRN Reason: K+ = or < 3.5 Acetaminophen (Ofirmev) 650 mg in 65 mls @ 130 mls/hr IV Q6HP PRN; Protocol PRN Reason: Per Pain Protocol/Fever > 101 Last Admin: 08/08/20 13:15 Dose: 130 mls/hr Documented by: Magnesium Sulfate (Magnesium Sulfate) 2 gm in 50 mls @ 50 mls/hr IV UD PRN PRN Reason: MG = or < 1.7 Vancomycin HCl 1,500 mg/ (Sodium Chloride) 500 mls @ 333.3 mls/hr IV DAILY [facility] Last Admin: 08/08/20 09:19 Dose: 333.3 mls/hr Documented by: Nicardipine HCl 25 mg/ Sodium (Chloride) 250 mls @ 50 mls/hr IV Q5H [facility]; Protocol Last Admin: 08/08/20 13:02 Dose: 2 mg/hr, 20 mls/hr Documented by: Sodium Chloride (Sodium Chloride 0.9%) 250 mls @ 20 mls/hr IV .[id number] [facility] Last Admin: 08/08/20 05:49 Dose: 20 mls/hr Documented by: Insulin Human Lispro (Insulin Lispro 1 Unit/0.01 Ml Unit) 0 unit SQ ACHS [facility]; Protocol Last Admin: 08/08/20 13:01 Dose: Not Given Documented by: Iron Carb/Multivit/[employer] Mechanical/Folic Acid (Multivit,Ther Iron,Ca,Fa & Min 1 Tablet) 1 tab PO DAILY [facility] Last Admin: 08/08/20 07:44 Dose: 1 tab Documented by: Lorazepam (Lorazepam 2 Mg/Ml Vial) 0.5 mg IV Q4HP PRN PRN Reason: ANXIETY/SEDATION Last Admin: 08/07/20 19:47 Dose: 0.5 mg Documented by: Melatonin (Melatonin 3 Mg Tablet) 3 mg PO HSP PRN PRN Reason: Insomnia Methocarbamol (Methocarbamol 750 Mg Tablet) 750 mg PO Q8HP PRN PRN Reason: muscle spasm Methylprednisolone Sodium Succinate (Methylprednisolone Sod Succ 40 Mg/Ml Vial) 40 mg IV Q8H [facility] Last Admin: 08/08/20 05:42 Dose: 40 mg Documented by: Metoprolol Tartrate (Metoprolol Tartrate 5 Mg/5 Ml Vial) 5 mg IV Q5M PRN PRN Reason: Heart Rate > 140 bpm Metoprolol Tartrate (Metoprolol Tartrate 25 Mg Tablet) 25 mg PO BID [facility] Ondansetron HCl (Ondansetron 4 Mg Odt Tablet) 4 mg SL Q4-6HP PRN; Protocol PRN Reason: Nausea And Vomiting Ondansetron HCl (Ondansetron 4 Mg/2 Ml Vial) 4 mg IV Q4-6HP PRN; Protocol PRN Reason: Nausea And Vomiting Polyethylene Glycol (Polyethylene Glycol 3350 17 Gm Packet) 17 gm PO DAILYP PRN PRN Reason: Constipation Last Admin: 08/08/20 07:44 Dose: 17 gm Documented by: Potassium Chloride (Potassium Chloride 20 Meq Packet) 40 meq PO DAILYP PRN PRN Reason: K+ < 3.5 Potassium Chloride (Potassium Chloride 10 Meq Tablet) 10 meq PO BIDCC [facility] Senna/Docusate Sodium (Sennosides/Docusate Sodium 1 Tab Tablet) 1 tab PO HS [facility] Last Admin: 08/07/20 21:05 Dose: Not Given Documented by: Sodium Chloride (0.9 % Sodium Chloride 10 Ml Syringe) 10 ml IV UD PRN PRN Reason: FLUSH Sodium Chloride (0.9 % Sodium Chloride 10 Ml Syringe) 10 ml IV Q12 [facility] Last Admin: 08/08/20 07:46 Dose: 10 ml Documented by: Tramadol HCl (Tramadol 50 Mg Tablet) 50 mg PO Q4HP PRN; Protocol PRN Reason: pain Vancomycin HCl (Vancomycin Per Pharmacy) 1 order IV UD [facility]; Protocol A/P Narrative A/P Narrative: A: *Acute hypoxic/hypercapnic respiratory failure: clinically improving -Extubated 08/07 a.m., now on Bipap *B/l PNA: -Clinically responding to antibiotics -SC/BC neg *Septic shock: resolved, now off pressors -Leukocytosis improved, pct elevated on admit *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
[2020-08-08] MEDS ORDERED: acetaZOLAMIDE SOD 500 MG VIAL IV ONE (14:22)
[2020-08-08] MEDS ORDERED: ALBUMIN HUMAN 12.5 GM/50 ML BAG IV ONE (14:22)
[2020-08-08] MEDS ORDERED: predniSONE 20 MG TABLET PO SCH (17:30)
[2020-08-08] MEDS: POTASSIUM CHLORIDE 10 MEQ TABLET PO SCH (17:44)
[2020-08-08] MEDS: SENNOSIDES/DOCUSATE SODIUM 1 TAB TABLET PO SCH (20:17)
[2020-08-08] MEDS: METOPROLOL TARTRATE 25 MG TABLET PO SCH (20:25)
[2020-08-09] MEDS: niCARdipine 25 MG in 0.9 % SODIUM CHLORIDE 240 ML IV SCH ×3 (00:46→07:42)
[2020-08-09] MEDS: 0.9 % SODIUM CHLORIDE 250 ML IV SCH ×2 (03:03→08:22)
[2020-08-09] MEDS: CEFEPIME 1 GM VIAL IV SCH ×2 (06:01→21:29)
[2020-08-09 06:58] LABS: ALT/SGPT 101 U/L (<40); AST/SGOT 45 U/L (<32); Albumin 3.2 gm/dL (3.2-5.2); Albumin/Globulin Ratio 1.2 (1.0-2.3); Alkaline Phosphatase 89 U/L (39-117); Bilirubin,Direct < 0.2 mg/dL (0-0.3); Bilirubin,Total 0.4 mg/dL (0.1-1.0); Blood Urea Nitrogen 26 mg/dL (8-23); Calcium 8.5 mg/dL (8.6-10.4); Carbon Dioxide 36 mmol/L (22-30); Chloride 97 mmol/L (96-108); Globulin 2.6 gm/dL (2.2-3.7); Glomerular Filtration Rate 78; Glucose 112 mg/dL (70-105); Lactate Dehydrogenase 284 U/L (135-225); Phosphorous 3.7 mg/dL (2.5-4.5); Triglycerides 151 mg/dL (<150); Uric Acid 3.4 mg/dL (2.5-8.0)
[2020-08-09] MEDS ORDERED: ENALAPRILAT 1.25 MG/ML VIAL IV PRN ×2 (07:14→10:27)
--- NOTE | 2020-08-09 07:18 | Internal Med Progress Note ---
SUBJECTIVE Subjective Patient information: Note initiated : 08/09/20 at 7:12 am Service Date, if different from initiated Date: [] Patient: Janki Pruett 85 y/o F admitted on 08/04/20 for SOB, Altered LOC. Chief Complaint: [] Interval history: Ms. Pruett is a 85 year old F who lives with her son and carries a complex past medical history including COPD/CHF/CKD stage III/HLD Who presented to the ER with 5 days onset of worsening shortness of breath/weaknes, cough and progressive dyspnea limiting her functionality. Her son found her increasingly confused lethargic and unable to perform ADLs over the last 24 hours. With increasing concerns she was brought into the ER. Initial work-up was consistent with bilateral chest infiltrates suggestive of pneumonia. White count 14.6, potassium 5.2, BNP 3131. Patient was started on diuretics due to suspicion of superimposed CHF. Cultures were drawn and antibiotics initiated. Patient remained increasingly labored with impending respiratory compromise. Stat ABG revealed 7.03/PCO2 150/117 on 60% FiO2 BiPAP. Patient was emergently intubated due to life-threatening respiratory acidosis an d hypoventilation. Initial [place] 2 score 21 Subsequently hospitalist service was consulted. At the time of my evaluation patient is accompanied with her daughter. She was able to answer most the question. Patient is currently on mechanical ventilation AC settings rate 16. [place] is draining clear urine Review of systems could not be performed. However daughter does endorse that she has been coughing and getting progressively short of breath. Also associated confusion consistent with history as above. 08/05-patient currently mechanical ventilation on propofol/fentanyl sedation. Currently on Levophed to maintain MAP at goal. ABG this morning 7.5 8/54. Vent settings changed to 6 to 8 cc IBW /RR down to 12-14 target minute ventilation 6 L. White count 12.6, creatinine 0.9, phosphorus 1.7 on replacement, initiate tube feeds, pro-Noel 0.3, urine WBCs 12. Continuing broad-spectrum antibiotics including cefepime/vancomycin along with Solu-Medrol. Sedation holiday in a.m. and assessment of RSBI. Anticipate vent weaning in 48 hours 08/06-patient started diuresing well. Sedation holiday this a.m. Alert and respond to commands. Daughter at bedside. Multiple concerns and questions addressed including antibiotics/imaging/blood work/echocardiogram and plan of care. White count 14.6.Interval improvement in chest imaging. Switch to midazolam/fentanyl due to bradycardia arrhythmia from propofol. Off Levophed. Hemodynamic stabilizing. Creatinine 1.9. Drum[place] is draining clear urine. Troponin 0.05 secondary sepsis endorgan dysfunction. ABG this morning 7.5 on 40% FiO2 AC 450 cc/12 08/07-patient doing well. Overnight on AC mechanical ventilation. Sedation holiday since this a.m. Diuresing well. Frequency tidal around 80. Patient alert. Off pressors. Good urine output. White count downtrending at 13,000, creatinine 0.8, interval chest imaging lateral worsening consolidation/vascular congestion. Continuing diuresis. Plan extubation today and switch to noninvasive ventilation if required. Continue steroids/antibiotic coverage. Aggressive pulmonary toilet postextubation. 08/08-patient overnight on noninvasive ventilation on 45% FiO2. On nasal cannula oxygen this morning, systolics 200s requiring nicardipine drip. Transition to oral antihypertensives. Able to communicate, [place] is draining clear urine, on 20 IV Lasix every 8. Interval chest imaging persistent bilateral chest infiltrates with pleural effusion. On cefepime/vancomycin. White count down to 11.7, creatinine 0.7, blood sugars at goal, LFTs downtrending. No family at bedside. Continue weaning noninvasive ventilation as tolerated. Serial imaging/diuresis, start dietary intervention and maintain aspiration precautions 08/09 Patient states poor sleep from noise and interruptions. restarted on low-dose nicardipine. On baseline oxygen requirements. sob Seems to be at baseline. She has occasional cough Review of Systems: denies headache/fever/chills/nausea/vomiting/chest or abdominal pain/diarrhea. Otherwise see above. Constitutional Vitals: Vital Signs Temp Pulse Resp BP Pulse Ox 97.9 F 69 21 165/48 96 08/09/20 05:31 08/09/20 01:15 08/09/20 05:31 08/09/20 05:31 08/09/20 05:31 Period Temp Pulse Resp BP Sys/[place] Pulse Ox Last 24 Hr 97.7 F-99.0 F 69-90 19-30 128-195/38-115 92-99 Intake and Output 0308/09/20 08/09/20 21:59 05:59 13:59 Intake Total 605 364 0 Output Total 1055 895 Balance -450 -531 0 Weight 108.182 kg Intake & Output: Intake & Output 08/08/20 08/09/20 08/09/20 21:59 05:59 13:59 Intake Total 605 364 0 Output Total 1055 895 Balance -450 -531 0 Weight 108.182 kg Intake: IV 605 364 0 Sodium Chloride 0.9% 250 ml @ 240 10 20 mls/hr IV .[id number] FRANCIS[facility] Rx#: [id number] Cardene 25 MG In Sodium 250 354 0 Chloride 0.9% 240 ml @ 5 MG/HR 50 mls/hr IV Q5H FRANCISCA Rx#: [id number] Output: Urine Catheter Amount 1055 895 Other: Meal Dinner Percent of Meal Consumed 50% Feeding Ability Assist with Tray Set Up Urine Appearance Clear Clear Uretheral ([place]) Clear Urine Color Straw Straw Uretheral ([place]) Straw Urine Odor Normal Stool Size Small Stool Color Brown Stool Consistency Loose # Bowel Movements 1 # of times incontinent of 0 Bowels Exam: General: Alert, Awake, No acute Distress, obese Eyes/N/T: EOMI, Head/Neck: neck supple, CV: RRR, No murmurs, Pulm: diminished b/l, no wheezing Abd: soft, nontender, +BS x4 Ext: no clubbing/cyanosis, b/l LE 2+ edema Neuro: Alert, no focal deficits, moves all extremities, Skin: warm/dry OBJ DATA Labs CBC & Chem 7: 08/08/20 04:50 08/09/20 05:26 Labs: Abnormal Lab Results 08/09/20 08/08/20 08/08/20 05:26 04:50 04:50 WBC 11.7 H RBC 3.77 L Hgb 10.1 L Hct 32.6 L POC Hct MCHC RDW 14.6 H Neut % (Auto) 88.0 H Lymph % (Auto) 5.5 L Lymph # (Auto) 0.64 L Clinch # (Auto) Absolute Neutrophils 10.30 H POC Chloride Chloride 95 L Carbon Dioxide 36 H 38 H POC Total CO2 Anion Gap 4.0 L 6.0 L POC BUN BUN 26 H 30 H Glucose 112 H 123 H POC Glucose Calcium 8.5 L 8.3 L POC WB Ioniz Calcium GGT 129 H 102 H AST 45 H 62 H ALT 101 H 101 H Lactate Dehydrogenase 284 H 226 H Total Protein 5.8 L 5.2 L Albumin 2.7 L Triglycerides 151 H Vancomycin Trough 08/07/20 08/07/20 08/06/20 05:35 05:35 13:19 WBC 13.0 H RBC 3.60 L Hgb 9.5 L Hct 30.7 L POC Hct 28 L MCHC 30.9 L RDW 14.7 H Neut % (Auto) 86.4 H Lymph % (Auto) 5.0 L Lymph # (Auto) 0.65 L Clinch # (Auto) 1.10 H Absolute Neutrophils 11.23 H POC Chloride 94 L Chloride Carbon Dioxide 39 H POC Total CO2 34 H Anion Gap 3.0 L POC BUN 29 H BUN 31 H Glucose 146 H POC Glucose 129 H Calcium 7.9 L POC WB Ioniz Calcium 1.08 L GGT 81 H AST 108 H ALT 78 H Lactate Dehydrogenase 248 H Total Protein 5.1 L Albumin 2.6 L Triglycerides Vancomycin Trough 08/06/20 08/06/20 08/06/20 08:08 04:55 04:55 WBC 14.6 H RBC 3.58 L Hgb 9.4 L Hct 30.7 L POC Hct MCHC 30.6 L RDW 14.7 H Neut % (Auto) 88.4 H Lymph % (Auto) 5.4 L Lymph # (Auto) 0.79 L Clinch # (Auto) Absolute Neutrophils 12.91 H POC Chloride Chloride Carbon Dioxide 33 H POC Total CO2 Anion Gap POC BUN BUN 30 H Glucose 131 H POC Glucose Calcium 8.4 L POC WB Ioniz Calcium GGT AST ALT Lactate Dehydrogenase Total Protein 5.6 L Albumin 3.0 L Triglycerides Vancomycin Trough 22.3 H* Meds: Medications Acetaminophen (Acetaminophen 325 Mg Tablet) 650 mg PO Q4-6HP PRN; Protocol PRN Reason: Per Pain Protocol/Fever > 101 Hydrocodone Bitart/Acetaminophen (Hydrocodone/Apap 7.5/325mg Tablet) 1 tab PO Q6HP PRN; Protocol PRN Reason: pain Albuterol/Ipratropium (Ipratropium/Albuterol 3 Ml Ampul.Neb) 3 ml NEB Q2HP PRN PRN Reason: Shortness Of Breath Last Admin: 08/07/20 19:12 Dose: 3 ml Documented by: Aspirin (Aspirin 81 Mg Tab.Chew) 81 mg PO DAILY [facility] Bisacodyl (Bisacodyl 10 Mg Supp.Rect) 10 mg MA Q2-3DAYS PRN PRN Reason: Constipation Cefepime HCl (Cefepime 1 Gm Vial) 1 gm IV Q12H [facility] Last Admin: 08/09/20 06:01 Dose: 1 gm Documented by: Diagnostic Test (Pha) (Accu-Chek 1 Each Strip) 1 each FS ACHS [facility] Last Admin: 08/08/20 20:14 Dose: 1 each Documented by: Docusate Sodium (Docusate Sodium 100 Mg Capsule) 100 mg PO BID [facility] Last Admin: 08/08/20 20:16 Dose: Not Given Documented by: Famotidine (Famotidine/Pf 20 Mg/2 Ml Vial) 20 mg IV Q12 [facility] Last Admin: 08/08/20 20:18 Dose: 20 mg Documented by: Furosemide (Furosemide 40 Mg/4 Ml Vial) 40 mg IV DAILY [facility] Guaifenesin (Guaifenesin 600 Mg Tab.Sr.12h) 600 mg PO DAILY [facility] Heparin Sodium (Porcine) (Heparin 5,000 Unit/Ml Vial) 5,000 unit SQ Q12 [facility] Last Admin: 08/08/20 20:18 Dose: 5,000 unit Documented by: Hydralazine HCl (Hydralazine 20 Mg/Ml Vial) 10 mg IV Q4HP PRN PRN Reason: Hypertension Last Admin: 08/07/20 13:52 Dose: 10 mg Documented by: Potassium Chloride 40 meq/ (Dextrose) 520 mls @ 130 mls/hr IV UD PRN PRN Reason: K+ = or < 3.5 Acetaminophen (Ofirmev) 650 mg in 65 mls @ 130 mls/hr IV Q6HP PRN; Protocol PRN Reason: Per Pain Protocol/Fever > 101 Last Infusion: 08/08/20 14:00 Dose: Infused Documented by: Magnesium Sulfate (Magnesium Sulfate) 2 gm in 50 mls @ 50 mls/hr IV UD PRN PRN Reason: MG = or < 1.7 Nicardipine HCl 25 mg/ Sodium (Chloride) 250 mls @ 50 mls/hr IV Q5H [facility]; Protocol Last Admin: 08/09/20 06:52 Dose: Not Given Documented by: Sodium Chloride (Sodium Chloride 0.9%) 250 mls @ 20 mls/hr IV .[id number] [facility] Last Infusion: 08/09/20 04:23 Dose: 20 mls/hr Documented by: Insulin Human Lispro (Insulin Lispro 1 Unit/0.01 Ml Unit) 0 unit SQ ACHS [facility]; Protocol Last Admin: 08/08/20 20:17 Dose: Not Given Documented by: Iron Carb/Multivit/Inspector [employer]ing/Folic Acid (Multivit,Ther Iron,Ca,Fa & Min 1 Tablet) 1 tab PO DAILY [facility] Last Admin: 08/08/20 07:44 Dose: 1 tab Documented by: Lorazepam (Lorazepam 2 Mg/Ml Vial) 0.5 mg IV Q4HP PRN PRN Reason: ANXIETY/SEDATION Last Admin: 08/07/20 19:47 Dose: 0.5 mg Documented by: Melatonin (Melatonin 3 Mg Tablet) 3 mg PO HSP PRN PRN Reason: Insomnia Last Admin: 08/08/20 20:25 Dose: 3 mg Documented by: Methocarbamol (Methocarbamol 750 Mg Tablet) 750 mg PO Q8HP PRN PRN Reason: muscle spasm Last Admin: 08/09/20 03:17 Dose: 750 mg Documented by: Metoprolol Tartrate (Metoprolol Tartrate 5 Mg/5 Ml Vial) 5 mg IV Q5M PRN PRN Reason: Heart Rate > 140 bpm Metoprolol Tartrate (Metoprolol Tartrate 25 Mg Tablet) 25 mg PO BID [facility] Last Admin: 08/08/20 20:25 Dose: 25 mg Documented by: Ondansetron HCl (Ondansetron 4 Mg Odt Tablet) 4 mg SL Q4-6HP PRN; Protocol PRN Reason: Nausea And Vomiting Ondansetron HCl (Ondansetron 4 Mg/2 Ml Vial) 4 mg IV Q4-6HP PRN; Protocol PRN Reason: Nausea And Vomiting Polyethylene Glycol (Polyethylene Glycol 3350 17 Gm Packet) 17 gm PO DAILYP PRN PRN Reason: Constipation Last Admin: 08/08/20 07:44 Dose: 17 gm Documented by: Potassium Chloride (Potassium Chloride 20 Meq Packet) 40 meq PO DAILYP PRN PRN Reason: K+ < 3.5 Potassium Chloride (Potassium Chloride 10 Meq Tablet) 10 meq PO BIDCC [facility] Last Admin: 08/08/20 17:44 Dose: 10 meq Documented by: Prednisone (Prednisone 20 Mg Tablet) 40 mg PO BIDCC [facility] Last Admin: 08/08/20 17:44 Dose: 40 mg Documented by: Senna/Docusate Sodium (Sennosides/Docusate Sodium 1 Tab Tablet) 1 tab PO HS [facility] Last Admin: 08/08/20 20:17 Dose: Not Given Documented by: Sodium Chloride (0.9 % Sodium Chloride 10 Ml Syringe) 10 ml IV UD PRN PRN Reason: FLUSH Sodium Chloride (0.9 % Sodium Chloride 10 Ml Syringe) 10 ml IV Q12 [facility] Last Admin: 08/08/20 20:16 Dose: 10 ml Documented by: Tramadol HCl (Tramadol 50 Mg Tablet) 50 mg PO Q4HP PRN; Protocol PRN Reason: pain A/P Narrative A/P Narrative: A: *Acute hypoxic/hypercapnic respiratory failure: clinically improving -Extubated (320 a.m.), now on 3L NC (baseline) *B/l PNA: -Clinically responding to antibiotics -SC/BC neg *Septic shock: resolved, now off pressors -Leukocytosis improved, pct elevated on admit *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 elevated *AECOPD(3L@home): on bronchodilators/steroids Plan: -antibiotic coverage, d/c soon -wean steroids -wean off nicardapine -switch metoprolol to coreg, add ACEI -Continue diuresis -cont home ASA - -Continue nutrition support/physical therapy -Discharge planning likely SNF -Prophylaxis lovenox/H2 antagonist code status: limited Time Spent With Patient Time: Total time spent is greater than 50% in coordination of care (as documented) at patient's floor/unit and/or counseling patient: QUALITY VTE Deep Vein Thrombosis/Pulmonary Embolism Present on Admission: No
[2020-08-09] MEDS: INSULIN LISPRO 1 UNIT/0.01 ML UNIT SQ SCH ×4 (07:40→21:29)
[2020-08-09] MEDS ORDERED: predniSONE 20 MG TABLET PO SCH (08:00)
[2020-08-09] MEDS ORDERED: CARVEDILOL 12.5 MG TABLET PO SCH (08:20)
[2020-08-09] MEDS ORDERED: LABETALOL 5 MG/ML ML IV PRN ×2 (08:21→10:27)
[2020-08-09] MEDS ORDERED: hydrALAZINE 20 MG/ML VIAL IV PRN ×2 (08:21→10:27)
[2020-08-09] MEDS: METOPROLOL TARTRATE 25 MG TABLET PO SCH (08:31)
[2020-08-09] MEDS: POTASSIUM CHLORIDE 10 MEQ TABLET PO SCH ×2 (08:31→16:41)
[2020-08-09] MEDS: DOCUSATE SODIUM 100 MG CAPSULE PO SCH ×3 (08:40→22:04)
[2020-08-09] MEDS: MULTIVIT,THER IRON,CA,FA & MIN 1 TABLET PO SCH (08:40)
[2020-08-09] MEDS: 0.9 % SODIUM CHLORIDE 10 ML SYRINGE IV SCH ×2 (08:41→21:30)
[2020-08-09] MEDS: FAMOTIDINE/PF 20 MG/2 ML VIAL IV SCH ×2 (08:41→21:28)
[2020-08-09] MEDS ORDERED: ENOXAPARIN 40 MG/0.4 ML SYRINGE SQ SCH (09:00)
[2020-08-09] MEDS ORDERED: ASPIRIN 81 MG TAB.CHEW PO SCH (09:00)
[2020-08-09] MEDS ORDERED: LISINOPRIL 5 MG TABLET PO SCH (09:00)
[2020-08-09] MEDS ORDERED: FUROSEMIDE 40 MG/4 ML VIAL IV SCH (09:00)
[2020-08-09] MEDS ORDERED: ALBUMIN HUMAN 12.5 GM/50 ML BAG IV ONE (09:00)
[2020-08-09] MEDS ORDERED: guaiFENesin 600 MG TAB.SR.12H PO SCH (09:00)
[2020-08-09] MEDS ORDERED: METOPROLOL TARTRATE 5 MG/5 ML VIAL IV PRN (10:27)
[2020-08-09] MEDS ORDERED: IOPAMIDOL 100 ML BOTTLE IV ONE (10:27)
[2020-08-09] MEDS ORDERED: ACETAMINOPHEN 325 MG TABLET PO PRN (10:27)
[2020-08-09] MEDS ORDERED: MAGNESIUM SULFATE 2 GM/50 ML BAG IV PRN (10:27)
[2020-08-09] MEDS ORDERED: BISACODYL 10 MG SUPP.RECT PR PRN (10:27)
[2020-08-09] MEDS ORDERED: traMADol 50 MG TABLET PO PRN (10:27)
[2020-08-09] MEDS ORDERED: ONDANSETRON 4 MG ODT TABLET SL PRN (10:27)
[2020-08-09] MEDS ORDERED: POLYETHYLENE GLYCOL 3350 17 GM PACKET PO PRN (10:27)
[2020-08-09] MEDS ORDERED: HYDROCODONE/APAP 7.5/325MG TABLET PO PRN (10:27)
[2020-08-09] MEDS ORDERED: LORazepam 2 MG/ML VIAL IV PRN (10:27)
[2020-08-09] MEDS ORDERED: ACETAMINOPHEN 650 MG/65 ML BAG IV PRN (10:27)
[2020-08-09] MEDS ORDERED: 0.9 % SODIUM CHLORIDE 10 ML SYRINGE IV PRN (10:27)
[2020-08-09] MEDS ORDERED: IPRATROPIUM/ALBUTEROL 3 ML AMPUL.NEB NEB PRN (10:27)
[2020-08-09] MEDS ORDERED: POTASSIUM CHLORIDE 20 MEQ PACKET PO PRN (10:27)
[2020-08-09] MEDS ORDERED: ONDANSETRON 4 MG/2 ML VIAL IV PRN (10:27)
[2020-08-09] MEDS ORDERED: POTASSIUM CHLORIDE 40 MEQ in DEXTROSE 5% IN WATER 500 ML IV PRN (10:27)
[2020-08-09] MEDS ORDERED: METHOCARBAMOL 750 MG TABLET PO PRN (10:27)
--- NOTE | 2020-08-09 10:40 | XRay Report ---
CLINICAL INFORMATION: Mechanically Ventilated COMPARISON: 08/08/2020 FINDINGS: Moderate cardiomegaly is unchanged. Mediastinum and pulmonary vessels are unremarkable. Moderate vague bibasilar infiltrates and moderate effusions are unchanged. IMPRESSION: Moderate vague bibasilar infiltrates and effusions no significant change since yesterday. Consider aspiration Interpreted and Authenticated by: Robby Swann 08/09/20
[2020-08-09] MEDS ORDERED: acetaZOLAMIDE SOD 500 MG VIAL IV ONE ×2 (14:00)
[2020-08-09] MEDS: CARVEDILOL 12.5 MG TABLET PO SCH (17:28)
[2020-08-09] MEDS ORDERED: MELATONIN 3 MG TABLET PO SCH ×2 (21:00)
[2020-08-09] MEDS ORDERED: diphenhydrAMINE 25 MG CAPSULE PO PRN ×2 (21:00)
[2020-08-09] MEDS: SENNOSIDES/DOCUSATE SODIUM 1 TAB TABLET PO SCH ×2 (21:30→22:05)
[2020-08-10] MEDS ORDERED: ROCURONIUM 10 MG/ML ML IV ONE (06:50)
[2020-08-10] MEDS: INSULIN LISPRO 1 UNIT/0.01 ML UNIT SQ SCH ×2 (07:25→12:18)
[2020-08-10 07:28] LABS: Blood Urea Nitrogen 40 mg/dL (8-23); Calcium 8.3 mg/dL (8.6-10.4); Carbon Dioxide 37 mmol/L (22-30); Chloride 101 mmol/L (96-108); Glomerular Filtration Rate 45; Glucose 92 mg/dL (70-105)
[2020-08-10] MEDS: FAMOTIDINE/PF 20 MG/2 ML VIAL IV SCH (07:39)
[2020-08-10] MEDS ORDERED: predniSONE 20 MG TABLET PO SCH (08:00)
--- NOTE | 2020-08-10 08:07 | Internal Med Progress Note ---
SUBJECTIVE Subjective Patient information: Note initiated : 08/10/20 at 8:02 am Service Date, if different from initiated Date: [] Patient: Janki Pruett 85 y/o F admitted on 08/04/20 for SOB, Altered LOC. Chief Complaint: [] Interval history: Ms. Pruett is a 85 year old F who lives with her son and carries a complex past medical history including COPD/CHF/CKD stage III/HLD Who presented to the ER with 5 days onset of worsening shortness of breath/weaknes, cough and progressive dyspnea limiting her functionality. Her son found her increasingly confused lethargic and unable to perform ADLs over the last 24 hours. With increasing concerns she was brought into the ER. Initial work-up was consistent with bilateral chest infiltrates suggestive of pneumonia. White count 14.6, potassium 5.2, BNP 3131. Patient was started on diuretics due to suspicion of superimposed CHF. Cultures were drawn and antibiotics initiated. Patient remained increasingly labored with impending respiratory compromise. Stat ABG revealed 7.03/PCO2 150/117 on 60% FiO2 BiPAP. Patient was emergently intubated due to life-threatening respiratory acidosis an d hypoventilation. Initial [place] 2 score 21 Subsequently hospitalist service was consulted. At the time of my evaluation patient is accompanied with her daughter. She was able to answer most the question. Patient is currently on mechanical ventilation AC settings rate 16. Drummond is draining clear urine Review of systems could not be performed. However daughter does endorse that she has been coughing and getting progressively short of breath. Also associated confusion consistent with history as above. 08/05-patient currently mechanical ventilation on propofol/fentanyl sedation. Currently on Levophed to maintain MAP at goal. ABG this morning 7.5 8/54. Vent settings changed to 6 to 8 cc IBW /RR down to 12-14 target minute ventilation 6 L. White count 12.6, creatinine 0.9, phosphorus 1.7 on replacement, initiate tube feeds, pro-Noel 0.3, urine WBCs 12. Continuing broad-spectrum antibiotics including cefepime/vancomycin along with Solu-Medrol. Sedation holiday in a.m. and assessment of RSBI. Anticipate vent weaning in 48 hours 08/06-patient started diuresing well. Sedation holiday this a.m. Alert and respond to commands. Daughter at bedside. Multiple concerns and questions addressed including antibiotics/imaging/blood work/echocardiogram and plan of care. White count 14.6.Interval improvement in chest imaging. Switch to midazolam/fentanyl due to bradycardia arrhythmia from propofol. Off Levophed. Hemodynamic stabilizing. Creatinine 1.9. Drummond is draining clear urine. Troponin 0.05 secondary sepsis endorgan dysfunction. ABG this morning 7.5 on 40% FiO2 AC 450 cc/12 08/07-patient doing well. Overnight on AC mechanical ventilation. Sedation holiday since this a.m. Diuresing well. Frequency tidal around 80. Patient alert. Off pressors. Good urine output. White count downtrending at 13,000, creatinine 0.8, interval chest imaging lateral worsening consolidation/vascular congestion. Continuing diuresis. Plan extubation today and switch to noninvasive ventilation if required. Continue steroids/antibiotic coverage. Aggressive pulmonary toilet postextubation. 08/08-patient overnight on noninvasive ventilation on 45% FiO2. On nasal cannula oxygen this morning, systolics 200s requiring nicardipine drip. Transition to oral antihypertensives. Able to communicate, Drummond is draining clear urine, on IV Lasix every 8. Interval chest imaging persistent bilateral chest infiltrates with pleural effusion. On cefepime/vancomycin. White count down to 11.7, creatinine 0.7, blood sugars at goal, LFTs downtrending. No family at bedside. Continue weaning noninvasive ventilation as tolerated. Serial imaging/diuresis, start dietary intervention and maintain aspiration precautions 08/09 Patient states poor sleep from noise and interruptions. restarted on low-dose nicardipine. On baseline oxygen requirements. sob Seems to be at baseline. She has occasional cough 08/10 Patient upset yesterday that she was in hospital and alive she did not want to be intubated. Family switched her from limited to DNR. Last night patient increased work of breathing based on the BiPAP. Today she is minimally. back on oxymask at 3L. Review of Systems: Unable to gather as she is nonverbal Constitutional Vitals: Vital Signs Temp Pulse Resp BP Pulse Ox 99.5 F H 53 L 16 120/52 90 08/10/20 06:07 08/10/20 05:00 08/10/20 06:56 08/10/20 06:07 08/10/20 06:56 Period Temp Pulse Resp BP Sys/[place] Pulse Ox Last 24 Hr 95.1 F-99.5 F 53-74 15-26 107-194/31-105 90-98 Intake and Output 08/09/20 08/10/20 08/10/20 21:59 05:59 13:59 Output Total 480 64 Balance -480 -64 Weight 105.914 kg Intake & Output: Intake & Output 08/09/20 08/10/20 08/10/20 21:59 05:59 13:59 Output Total 480 64 Balance -480 -64 Weight 105.914 kg Output: Urine Catheter Amount 430 64 Void Amount 50 Other: Meal Lunch Percent of Meal Consumed bites Urine Appearance Clear Uretheral (Drummond) Clear Clear Urine Color Dark Yellow Uretheral (Drummond) Bright Yellow Dark Yellow Exam: General: Alert, No acute Distress, obese Eyes/N/T: EOMI, Head/Neck: neck supple, CV: RRR, No murmurs, Pulm: diminished b/l, no wheezing Abd: soft, nontender, +BS x4 Ext: no clubbing/cyanosis, b/l LE 2+ edema Neuro: Makes eye contact but does not verbalize, no focal deficits, moves all extremities, Skin: warm/dry OBJ DATA Labs CBC & Chem 7: 08/08/20 04:50 08/10/20 05:41 Labs: Abnormal Lab Results 08/10/20 08/09/20 08/08/20 05:41 05:26 04:50 WBC RBC Hgb Hct RDW Neut % (Auto) Lymph % (Auto) Lymph # (Auto) Absolute Neutrophils Chloride 95 L Carbon Dioxide 37 H 36 H 38 H Anion Gap 5.0 L 4.0 L 6.0 L BUN 40 H 26 H 30 H Glucose 112 H 123 H Calcium 8.3 L 8.5 L 8.3 L GGT 129 H 102 H AST 45 H 62 H ALT 101 H 101 H Lactate Dehydrogenase 284 H 226 H Total Protein 5.8 L 5.2 L Albumin 2.7 L Triglycerides 151 H 08/08/20 04:50 WBC 11.7 H RBC 3.77 L Hgb 10.1 L Hct 32.6 L RDW 14.6 H Neut % (Auto) 88.0 H Lymph % (Auto) 5.5 L Lymph # (Auto) 0.64 L Absolute Neutrophils 10.30 H Chloride Carbon Dioxide Anion Gap BUN Glucose Calcium GGT AST ALT Lactate Dehydrogenase Total Protein Albumin Triglycerides Meds: Medications Acetaminophen (Acetaminophen 325 Mg Tablet) 650 mg PO Q4-6HP PRN; Protocol PRN Reason: Per Pain Protocol/Fever > 101 Hydrocodone Bitart/Acetaminophen (Hydrocodone/Apap 7.5/325mg Tablet) 1 tab PO Q6HP PRN; Protocol PRN Reason: pain Albuterol/Ipratropium (Ipratropium/Albuterol 3 Ml Ampul.Neb) 3 ml NEB Q2HP PRN PRN Reason: Shortness Of Breath Aspirin (Aspirin 81 Mg Tab.Chew) 81 mg PO DAILY [facility] Bisacodyl (Bisacodyl 10 Mg Supp.Rect) 10 mg CA Q2-3DAYS PRN PRN Reason: Constipation Carvedilol (Carvedilol 12.5 Mg Tablet) 12.5 mg PO BIDCC [facility] Last Admin: 08/09/20 17:28 Dose: 12.5 mg Documented by: Cefepime HCl (Cefepime 1 Gm Vial) 1 gm IV Q12H [facility] Last Admin: 08/09/20 21:29 Dose: 1 gm Documented by: Diagnostic Test (Pha) (Accu-Chek 1 Each Strip) 1 each FS ACHS [facility] Last Admin: 08/10/20 07:25 Dose: 1 each Documented by: Diphenhydramine HCl (Diphenhydramine 25 Mg Capsule) 25 mg PO HSP PRN PRN Reason: Insomnia Docusate Sodium (Docusate Sodium 100 Mg Capsule) 100 mg PO BID [facility] Last Admin: 08/09/20 22:04 Dose: Not Given Documented by: Enalaprilat (Enalaprilat 1.25 Mg/Ml Vial) 0 mg IV Q2HP PRN PRN Reason: Hypertension Enoxaparin Sodium (Enoxaparin 40 Mg/0.4 Ml Syringe) 40 mg SQ DAILY [facility] Last Admin: 08/10/20 07:39 Dose: 40 mg Documented by: Famotidine (Famotidine/Pf 20 Mg/2 Ml Vial) 20 mg IV Q12 [facility] Last Admin: 08/10/20 07:39 Dose: 20 mg Documented by: Furosemide (Furosemide 40 Mg/4 Ml Vial) 40 mg IV DAILY [facility] Last Admin: 08/10/20 07:29 Dose: 40 mg Documented by: Guaifenesin (Guaifenesin 600 Mg Tab.Sr.12h) 600 mg PO DAILY [facility] Hydralazine HCl (Hydralazine 20 Mg/Ml Vial) 0 mg IV Q2HP PRN PRN Reason: Hypertension Acetaminophen (Ofirmev) 650 mg in 65 mls @ 130 mls/hr IV Q6HP PRN; Protocol PRN Reason: Per Pain Protocol/Fever > 101 Magnesium Sulfate (Magnesium Sulfate) 2 gm in 50 mls @ 50 mls/hr IV UD PRN PRN Reason: MG = or < 1.7 Potassium Chloride 40 meq/ (Dextrose) 520 mls @ 130 mls/hr IV UD PRN PRN Reason: K+ = or < 3.5 Insulin Human Lispro (Insulin Lispro 1 Unit/0.01 Ml Unit) 0 unit SQ ACHS [facility]; Protocol Last Admin: 08/10/20 07:25 Dose: Not Given Documented by: Iron Carb/Multivit/[place]/Folic Acid (Multivit,Ther Iron,Ca,Fa & Min 1 Tablet) 1 tab PO DAILY [facility] Labetalol HCl (Labetalol 5 Mg/Ml Ml) 0 mg IV Q2HP PRN PRN Reason: Hypertension Lisinopril (Lisinopril 5 Mg Tablet) 5 mg PO DAILY [facility] Lorazepam (Lorazepam 2 Mg/Ml Vial) 0.5 mg IV Q4HP PRN PRN Reason: ANXIETY/SEDATION Last Admin: 08/09/20 22:03 Dose: 0.5 mg Documented by: Melatonin (Melatonin 3 Mg Tablet) 3 mg PO QHS [facility] Last Admin: 08/09/20 21:29 Dose: 3 mg Documented by: Methocarbamol (Methocarbamol 750 Mg Tablet) 750 mg PO Q8HP PRN PRN Reason: muscle spasm Metoprolol Tartrate (Metoprolol Tartrate 5 Mg/5 Ml Vial) 5 mg IV Q5M PRN PRN Reason: Heart Rate > 140 bpm Ondansetron HCl (Ondansetron 4 Mg Odt Tablet) 4 mg SL Q4-6HP PRN; Protocol PRN Reason: Nausea And Vomiting Ondansetron HCl (Ondansetron 4 Mg/2 Ml Vial) 4 mg IV Q4-6HP PRN; Protocol PRN Reason: Nausea And Vomiting Polyethylene Glycol (Polyethylene Glycol 3350 17 Gm Packet) 17 gm PO DAILYP PRN PRN Reason: Constipation Potassium Chloride (Potassium Chloride 10 Meq Tablet) 10 meq PO BIDCC [facility] Last Admin: 08/09/20 16:41 Dose: Not Given Documented by: Potassium Chloride (Potassium Chloride 20 Meq Packet) 40 meq PO DAILYP PRN PRN Reason: K+ < 3.5 Prednisone (Prednisone 20 Mg Tablet) 20 mg PO [facility] Senna/Docusate Sodium (Sennosides/Docusate Sodium 1 Tab Tablet) 1 tab PO HS [facility] Last Admin: 08/09/20 22:05 Dose: Not Given Documented by: Sodium Chloride (0.9 % Sodium Chloride 10 Ml Syringe) 10 ml IV Q12 [facility] Last Admin: 08/09/20 21:30 Dose: 10 ml Documented by: Sodium Chloride (0.9 % Sodium Chloride 10 Ml Syringe) 10 ml IV UD PRN PRN Reason: FLUSH Tramadol HCl (Tramadol 50 Mg Tablet) 50 mg PO Q4HP PRN; Protocol PRN Reason: pain A/P Narrative A/P Narrative: A: *Acute hypoxic/hypercapnic respiratory failure: clinically improving -Extubated (320 a.m.), now on 3L NC (baseline) but used bipap last night for labored breathing - ?aspiration *B/l PNA: -SC/BC neg *Septic shock: resolved, -Leukocytosis improved, pct elevated on admit *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 elevated *AECOPD(3L@home): on bronchodilators/steroids *Oropharyngeal Dysphagia: Plan: -Chest US to eval effusions -antibiotic coverage, d/c soon -wean steroids -off nicardapine, switched metoprolol to coreg, add ACEI, prn IV -hold diuresis -cont home ASA -diet per ST, ST reeval today -Continue nutrition support/physical therapy -Discharge planning likely SNF -family discussions -Prophylaxis: lovenox/H2 antagonist code status: DNR Time Spent With Patient Time: Total time spent is greater than 50% in coordination of care (as documented) at patient's floor/unit and/or counseling patient: QUALITY VTE Deep Vein Thrombosis/Pulmonary Embolism Present on Admission: No
[2020-08-10] MEDS ORDERED: guaiFENesin 600 MG TAB.SR.12H PO SCH (09:00)
[2020-08-10] MEDS ORDERED: ASPIRIN 81 MG TAB.CHEW PO SCH (09:00)
[2020-08-10] MEDS ORDERED: LISINOPRIL 5 MG TABLET PO SCH (09:00)
[2020-08-10] MEDS ORDERED: MULTIVIT,THER IRON,CA,FA & MIN 1 TABLET PO SCH (09:00)
[2020-08-10] MEDS ORDERED: ENOXAPARIN 40 MG/0.4 ML SYRINGE SQ SCH (09:00)
[2020-08-10] MEDS ORDERED: FUROSEMIDE 40 MG/4 ML VIAL IV SCH (09:00)
[2020-08-10] MEDS: CEFEPIME 1 GM VIAL IV SCH (09:32)
[2020-08-10] MEDS ORDERED: 0.9 % SODIUM CHLORIDE 250 ML IV SCH ×2 (10:45)
[2020-08-10] MEDS: 0.9 % SODIUM CHLORIDE 10 ML SYRINGE IV SCH (11:17)
[2020-08-10] MEDS ORDERED: 0.9 % SODIUM CHLORIDE 10 ML SYRINGE IV PRN (12:13)
[2020-08-10] MEDS ORDERED: LACTOPEROXI/GLUC OXID/POT THIO 1 EACH GEL..EA. TOPICAL PRN (12:13)
[2020-08-10] MEDS ORDERED: BISACODYL 10 MG SUPP.RECT PR PRN (12:13)
[2020-08-10] MEDS ORDERED: ONDANSETRON 4 MG ODT TABLET SL PRN (12:13)
[2020-08-10] MEDS ORDERED: ACETAMINOPHEN 325 MG TABLET PO PRN (12:13)
[2020-08-10] MEDS ORDERED: METHOCARBAMOL 750 MG TABLET PO PRN (12:13)
[2020-08-10] MEDS ORDERED: HYDROCODONE/APAP 7.5/325MG TABLET PO PRN (12:13)
[2020-08-10] MEDS ORDERED: LORazepam 2 MG/ML VIAL IV PRN (12:13)
[2020-08-10] MEDS ORDERED: morphine 4 MG/ML VIAL IV PRN (12:13)
[2020-08-10] MEDS: CARVEDILOL 12.5 MG TABLET PO SCH (12:16)
[2020-08-10] MEDS: POTASSIUM CHLORIDE 10 MEQ TABLET PO SCH (12:16)
[2020-08-10] MEDS: DOCUSATE SODIUM 100 MG CAPSULE PO SCH (12:17)
--- NOTE | 2020-08-10 12:45 | Ultrasound Report ---
CLINICAL INFORMATION: eval effusion for potential thoracentsis COMPARISON: None. FINDINGS: Moderate simple appearing bilateral pleural effusions appreciated. IMPRESSION: Moderate simple appearing bilateral pleural effusions. Volume should be sufficient to allow safe thoracentesis Interpreted and Authenticated by: Robby Swann 08/10/20
--- NOTE | 2020-08-10 13:54 | Death Note ---
Discharge Sum: Prov Provider Patient information: Note initiated : 08/10/20 at 1:53 pm Service Date, if different from initiated Date: [] Patient: Janki Pruett 85 y/o F admitted on 08/04/20 for SOB, Altered LOC. Chief Complaint: [] Primary care physician: Venice Limon Consults: 08/04/20 13:49 Consult to Physician [CONS] Stat Comment: Consulting Provider: Rashaad Williamson Reason For Exam: Physician to Consult Discharge Sum: Summary Date and Time Date of admission: 08/04/20 16:00 Summary Details: Ms. Pruett is a 85 year old F who lives with her son and carries a complex past medical history including COPD/CHF/CKD stage III/HLD Who presented to the ER with 5 days onset of worsening shortness of breath/weaknes, cough and progressive dyspnea limiting her functionality. Her son found her increasingly confused lethargic and unable to perform ADLs over the last 24 hours. With increasing concerns she was brought into the ER. Initial work-up was consistent with bilateral chest infiltrates suggestive of pneumonia. White count 14.6, potassium 5.2, BNP 3131. Patient was started on diuretics due to suspicion of superimposed CHF. Cultures were drawn and antibiotics initiated. Patient remained increasingly labored with impending respiratory compromise. Stat ABG revealed 7.03/PCO2 150/117 on 60% FiO2 BiPAP. Patient was emergently intubated due to life-threatening respiratory acidosis and hypoventilation. Initial [place] 2 score 21 Subsequently hospitalist service was consulted. At the time of my evaluation patient is accompanied with her daughter. She was able to answer most the question. Patient is currently on mechanical ventilation AC settings rate 16. Drummond is draining clear urine Review of systems could not be performed. However daughter does endorse that she has been coughing and getting progressively short of breath. Also associated confusion consistent with history as above. 08/05-patient currently mechanical ventilation on propofol/fentanyl sedation. Currently on Levophed to maintain MAP at goal. ABG this morning 7.5 8/54. Vent settings changed to 6 to 8 cc IBW /RR down to 12-14 target minute ventilation 6 L. White count 12.6, creatinine 0.9, phosphorus 1.7 on replacement, initiate tube feeds, pro-Noel 0.3, urine WBCs 12. Continuing broad- spectrum antibiotics including cefepime/vancomycin along with Solu-Medrol. Sedation holiday in a.m. and assessment of RSBI. Anticipate vent weaning in 48 hours 08/06-patient started diuresing well. Sedation holiday this a.m. Alert and respond to commands. Daughter at bedside. Multiple concerns and questions addressed including antibiotics/imaging/blood work/echocardiogram and plan of care. White count 14.6.Interval improvement in chest imaging. Switch to midazolam/fentanyl due to bradycardia arrhythmia from propofol. Off Levophed. Hemodynamic stabilizing. Creatinine 1.9. Drummond is draining clear urine. Troponin 0.05 secondary sepsis endorgan dysfunction. ABG this morning 7.5 on 40% FiO2 AC 450 cc/12 08/07-patient doing well. Overnight on AC mechanical ventilation. Sedation holiday since this a.m. Diuresing well. Frequency tidal around 80. Patient alert. Off pressors. Good urine output. White count downtrending at 13,000, creatinine 0.8, interval chest imaging lateral worsening consolidation/vascular congestion. Continuing diuresis. Plan extubation today and switch to noninvasive ventilation if required. Continue steroids/antibiotic coverage. Aggressive pulmonary toilet postextubation. 08/08-patient overnight on noninvasive ventilation on 45% FiO2. On nasal cannula oxygen this morning, systolics 200s requiring nicardipine drip. Transition to oral antihypertensives. Able to communicate, Drummond is draining clear urine, on 20 IV Lasix every 8. Interval chest imaging persistent bilateral chest infiltrates with pleural effusion. On cefepime/vancomycin. White count down to 11.7, creatinine 0.7, blood sugars at goal, LFTs downtrending. No family at bedside. Continue weaning noninvasive ventilation as tolerated. Serial imaging/diuresis, start dietary intervention and maintain aspiration precautions 08/09 Patient states poor sleep from noise and interruptions. restarted on low-dose nicardipine. On baseline oxygen requirements. sob Seems to be at baseline. She has occasional cough 08/10 Patient upset yesterday that she was in hospital and alive she did not want to be intubated. Family switched her from limited to DNR. Last night patient increased work of breathing based on the BiPAP. Today she is minimally. back on oxymask at 3L. *the daughter had a discussion with her brother and after some time they decided to transition to comfort care only as per the pts original wishes. pt with family at bedside and 1326 hours. 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 elevated *AECOPD(3L@home): on bronchodilators/steroids *Oropharyngeal Dysphagia: Additional Data Attending physician: Rashaad Williamson
[2020-08-10] MEDS ORDERED: 0.9 % SODIUM CHLORIDE 10 ML SYRINGE IV SCH (14:00)
== END 2020-08-10 14:28 | disposition expired | DRG 208 ==
LOC: ED 11:20 → ICU 15:55
PROVIDERS: ADMIT Internal Medicine; ATTEND Internal Medicine